=== PATIENT | female | born 1965 | race Hispanic/Latino ===

== ENCOUNTER 2018-11-17 10:34 | Emergency (ER) | payer BC, SELFPAY ==
--- NOTE | 2018-11-17 11:38 | RAD REPORT ---
EXAM DESCRIPTION: RAD - Chest Single View - 11/17/2018 11:25 am CLINICAL HISTORY: COUGH Chest pain. COMPARISON: No comparisons FINDINGS: Portable technique limits examination quality. Mild linear opacities are present in the right lung base suspicious for early/ developing pneumonia. The lungs are otherwise clear. The heart is normal in size. No displaced fractures. IMPRESSION: Early right base pneumonia.
[2018-11-17] MEDS ORDERED: NA CHLORIDE 0.9% 1,000 ML ONE (12:07)
[2018-11-17 12:16] LABS: Absolute Lymphocytes (CBC) 2.6 K/uL (0.7-4.9); Basophils % 0.4 % (0-1.3); Lymphocytes % 40.7 % (15.3-44.8); Monocytes % 5.9 % (3.3-12.3); RBC Red Blood Cell Count 4.82 M/uL (3.86-4.86)
[2018-11-17 12:17] LABS: Protime INR 1.03
[2018-11-17 12:28] LABS: Urine Blood TRACE (NEG); Urine Glucose NEGATIVE (NEG); Urine Protein 1+ (NEG); Urine Specific Gravity 1.025 (1.005-1.030)
[2018-11-17 12:39] LABS: ALT/SGPT 74 U/L (12-78); AST/SGOT 41 U/L (15-37); Albumin 3.8 g/dL (3.4-5.0); Alkaline Phosphatase 216 U/L (45-117); BUN Blood Urea Nitrogen 14 mg/dL (7-18); Bicarbonate 26 mmol/L (21-32); Bilirubin Direct 0.2 mg/dL (0-0.2); Bilirubin Total 0.4 mg/dL (0.2-1.0); Glucose Level 108 mg/dL (74-106); Magnesium 2.4 mg/dL (1.8-2.4); NT PRO-BNP 28 pg/mL (<125); Potassium 4.2 mmol/L (3.5-5.1); Protein, Total 7.7 g/dL (6.4-8.2); Sodium Level 140 mmol/L (136-145); Troponin (Emerg Dept Use Only) < 0.02 ng/mL (0.0-0.045)
--- NOTE | 2018-11-17 13:22 | RAD REPORT ---
EXAM DESCRIPTION: CT - Chest For Pe Angio - 11/17/2018 1:14 pm CLINICAL HISTORY: Chest pain, persistent cough COMPARISON: Chest films same date TECHNIQUE: Dynamically enhanced 3 mm thick images of the chest were obtained during administration o f approximately 150mL Isovue 370 IV contrast. Coronal and oblique MIP reconstruction images were gene rated and reviewed. Exam utilizes a protocol to evaluate the pulmonary arterial tree. All CT scans are performed using dose optimization technique as appropriate and may include automated exposure control or mA/KV adjustment according to patient size. FINDINGS: No pulmonary emboli are identified. The aorta as imaged shows no acute or suspicious finding. No pericardial thickening or effusion. No acute left lung field finding. Granulomas present. Patchy interstitial and alveolar opacities are present in the inferior aspect of the right upper lobe near the minor fissure and in the central aspe ct of the right middle lobe near the hilum. Reactive lymph nodes are present at the hilum. A more pro minent alveolar opacification pattern is present in the right lower lobe. This matches the chest film finding. No pleural effusion or pleural thickening. No mediastinal or hilar suspicious masses. No chest wall masses or abnormal axillary lymphadenopathy. IMPRESSION: No pulmonary emboli identified. Right lower lobe pneumonia changes are present with additional minimal pneumonia changes in the right upper lobe near the minor fissure and in the central aspect of the right middle lobe.
--- NOTE | 2018-11-17 13:50 | ER ---
Nurse's Notes [facility] Name: Teetee Hicks Age: 53 yrs Sex: Female : 1965 Arrival Date: 11/17/2018 Time: 10:35 Bed 27 Private MD: Diagnosis: Pneumonia due to other specified bacteria;Vomiting Presentation: 11/17 10:45 Presenting complaint: Patient states: tang been coughing a lot since Friday and been hj taking OTC cough meds; reports fever and chills; reports wheezing and vomited blood last night;. Transition of care: patient was not received from another setting of care. Onset of symptoms was November 17, 2018. Risk Assessment: Do you want to hurt yourself or someone else? Patient reports no desire to harm self or others. Initial Sepsis Screen: Does the patient meet any 2 criteria? No. Patient's initial sepsis screen is negative. Does the patient have a suspected source of infection? No. Patient's initial sepsis screen is negative. Care prior to arrival: None. 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 - Social history:: Smoking status: Patient/guardian denies using tobacco. - Ebola Screening: : Patient negative for fever greater than or equal to 101.5 degrees Fahrenheit, and additional compatible Ebola Virus Disease symptoms Patient denies exposure to infectious person Patient denies travel to an Ebola-affected area in the 21 days before illness onset No symptoms or risks identified at this time. Screenin:13 Abuse screen: Denies threats or abuse. Denies injuries from another. Nutritional iw screening: No deficits noted. Tuberculosis screening: No symptoms or risk factors identified. Fall Risk IV access (20 points). Assessment: 12:13 General: Appears in no apparent distress. Behavior is calm, cooperative. Pain: iw Complains of pain in chest. Neuro: Level of Consciousness is awake, alert, obeys commands, Oriented to person, place, time, situation, Moves all extremities. Cardiovascular: Patient's skin is warm and dry. Respiratory: Reports shortness of breath on exertion cough that is non-productive, dry, hacking, persistent Respiratory effort is even, unlabored, Respiratory pattern is regular, symmetrical. GI: Abdomen is non-distended. Derm: Skin is intact, is healthy with good turgor. 13:15 Reassessment: Patient appears in no apparent distress at this time. Patient and/or iw family updated on plan of care and expected duration. Pain level reassessed. Patient is alert, oriented x 3, equal unlabored respirations, skin warm/dry/pink. Vital Signs: 10:47 BP 140 / 65; Pulse 60; Resp 18; Temp 97.4(TE); Pulse Ox 98% on R/A; Weight 84.37 kg; hj Height 5 ft. 0 in. (152.40 cm); Pain 10/10; 12:14 BP 116 / 74; Pulse 57; Resp 16; Pulse Ox 96% on R/A; Pain 5/10; iw 10:47 Body Mass Index 36.33 (84.37 kg, 152.40 cm) ED Course: 10:35 Patient arrived in ED. as 10:46 Triage completed. hj 10:47 Arm band placed on left wrist. hj 11:10 Sandoval Beltran MD is Attending Physician. [facility] 11:24 X-ray completed. Portable x-ray completed in exam room. Patient tolerated procedure ml well. 11:27 XRAY Chest (1 view) In Process Unspecified. EDMS 11:30 Placed in gown. Bed in low position. Call light in reach. Side rails up X 1. Verbal jp3 reassurance given. 11:30 Pulse ox on. NIBP on. jp3 11:40 Urine collected: clean catch specimen, clear, eduar colored. Patient maintains SpO2 jp3 saturation greater than 95% on room air. 11:47 Brenda Rick, RN is Primary Nurse. iw 11:55 Initial lab(s) drawn, by me, sent to lab. Inserted saline lock: 22 gauge in left jp3 antecubital area, using aseptic technique. Blood collected. 12:01 Urine Culture Sent. jp3 12:01 Lipase Sent. jp3 12:01 Basic Metabolic Panel Sent. jp3 12:01 CBC with Diff Sent. jp3 12:01 LFT's Sent. jp3 12:01 Magnesium Sent. jp3 12:01 NT PRO-BNP Sent. jp3 12:02 PT-INR Sent. jp3 12:02 Troponin (emerg Dept Use Only) Sent. jp3 12:28 EKG done, by diesel automotive technician. reviewed by Sandoval Beltran MD. tc 13:15 CT Chest For PE Angio In Process Unspecified. EDMI 13:49 Bonilla Rodrigues MD is Referral Physician. noé 15:00 No provider procedures requiring assistance completed. IV discontinued, intact, iw bleeding controlled, No redness/swelling at site. Pressure dressing applied. Administered Medications: 12:11 Drug: NS 0.9% 500 ml Route: IV; Rate: bolus; Site: left antecubital; iw 13:40 Drug: Rocephin - (cefTRIAXone) 1 grams Route: IVPB; Infused Over: 30 mins; Site: left iw antecubital; 13:51 Drug: Augmentin 875 mg Route: PO; iw 13:52 Not Given (Physician Discretion): NS 0.9% 1000 ml IV at 125 ml/hr continuous iw 13:52 Drug: levofloxacin 750 mg Volume: 150 ml; Route: IVPB; Infused Over: 90 mins; Site: iw left antecubital; 13:52 Drug: Albuterol - atroVENT (3:1) (2.5 mg - 0.5 mg) 3 ml Route: Nebulizer; iw Outcome: 13:49 Discharge ordered by . [facility] 15:00 Discharged to home ambulatory. iw 15:00 Condition: good 15:00 Discharge instructions given to patient, Instructed on discharge instructions, follow up and referral plans. medication usage, Demonstrated understanding of instructions, follow-up care, medications, Prescriptions given X 5 15:01 Patient left the ED. iw Signatures: Dispatcher [employer] EDMI Sandoval Beltran MD MD cha Martinez, Amelia as Williams, Irene, RN RN Yesenia Yeung Tiffany, sales and events coordinator EKG Benjamin Pollock RN RN Abdirashid Correa jp3 Corrections: (The following items were deleted from the chart) 10:48 10:47 Pulse 60bpm; Resp 18bpm; Pulse Ox 98% RA; Temp 97.4F Temporal; 84.37 kg; Height 5 hj ft. 0 in.; BMI: 36.3; Pain 10/10; hj
--- NOTE | 2018-11-17 13:51 | EDPHYS ---
Physician Documentation [facility] Name: Teetee Hicks Age: 53 yrs Sex: Female : 1965 Arrival Date: 11/17/2018 Time: 10:35 Bed 27 Private MD: ED Physician Sandoval Beltran HPI: 11/17 12:46 This 53 yrs old Female presents to ER via Ambulatory with complaints of noé Vomiting. 12:46 The patient presents to the emergency department with nausea, vomiting, that is noé intermittent. Onset: The symptoms/episode began/occurred last night. Possible causes: unknown. The symptoms are aggravated by movement, The symptoms are alleviated by remaining still. Associated signs and symptoms: The patient has no apparent associated signs or symptoms. The patient has not experienced similar symptoms in the past. 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 - Social history:: Smoking status: Patient/guardian denies using tobacco. - Ebola Screening: : Patient negative for fever greater than or equal to 101.5 degrees Fahrenheit, and additional compatible Ebola Virus Disease symptoms Patient denies exposure to infectious person Patient denies travel to an Ebola-affected area in the 21 days before illness onset No symptoms or risks identified at this time. ROS: 12:47 Constitutional: Negative for fever, chills, and weight loss, Eyes: Negative for injury, noé pain, redness, and discharge, ENT: Negative for injury, pain, and discharge, Neck: Negative for injury, pain, and swelling, Cardiovascular: Negative for chest pain, palpitations, and edema, Abdomen/GI: Negative for abdominal pain, nausea, vomiting, diarrhea, and constipation, Back: Negative for injury and pain, : Negative for injury, bleeding, discharge, and swelling, MS/Extremity: Negative for injury and deformity, Skin: Negative for injury, rash, and discoloration, Neuro: Negative for headache, weakness, numbness, tingling, and seizure, Psych: Negative for depression, anxiety, suicide ideation, homicidal ideation, and hallucinations, Allergy/Immunology: Negative for hives, rash, and allergies, Endocrine: Negative for neck swelling, polydipsia, polyuria, polyphagia, and marked weight changes, Hematologic/Lymphatic: Negative for swollen nodes, abnormal bleeding, and unusual bruising. 12:47 Respiratory: Positive for cough, shortness of breath, wheezing, expiratory. Exam: 12:47 Constitutional: This is a well developed, well nourished patient who is awake, alert, noé and in no acute distress. Head/Face: Normocephalic, atraumatic. Eyes: Pupils equal round and reactive to light, extra-ocular motions intact. Lids and lashes normal. Conjunctiva and sclera are non-icteric and not injected. Cornea within normal limits. Periorbital areas with no swelling, redness, or edema. ENT: Nares patent. No nasal discharge, no septal abnormalities noted. Tympanic membranes are normal and external auditory canals are clear. Oropharynx with no redness, swelling, or masses, exudates, or evidence of obstruction, uvula midline. Mucous membranes moist. Neck: Trachea midline, no thyromegaly or masses palpated, and no cervical lymphadenopathy. Supple, full range of motion without nuchal rigidity, or vertebral point tenderness. No Meningismus. Chest/axilla: Normal chest wall appearance and motion. Nontender with no deformity. No lesions are appreciated. Cardiovascular: Regular rate and rhythm with a normal S1 and S2. No gallops, murmurs, or rubs. Normal PMI, no JVD. No pulse deficits. Abdomen/GI: Soft, non-tender, with normal bowel sounds. No distension or tympany. No guarding or rebound. No evidence of tenderness throughout. Back: No spinal tenderness. No costovertebral tenderness. Full range of motion. Female : Normal external genitalia. Skin: Warm, dry with normal turgor. Normal color with no rashes, no lesions, and no evidence of cellulitis. MS/ Extremity: Pulses equal, no cyanosis. Neurovascular intact. Full, normal range of motion. Neuro: Awake and alert, GCS 15, oriented to person, place, time, and situation. Cranial nerves II-XII grossly intact. Motor strength 5/5 in all extremities. Sensory grossly intact. Cerebellar exam normal. Normal gait. Psych: Awake, alert, with orientation to person, place and time. Behavior, mood, and affect are within normal limits. 12:47 Respiratory: the patient does not display signs of respiratory distress, Respirations: normal, Breath sounds: decreased breath sounds, rhonchi, wheezing: inspiratory expiratory is heard in the right middle lobe, right lower lobe, right posterior middle lobe and right posterior lower lobe. 12:50 : Rectal exam: is normal, Rectal tone: normal, Perineal sensation Normal Stool: noé normal, brown, Guaiac testing: results were negative for occult blood, hemorrhoid(s), are not appreciated, mass, is not appreciated, fissure, is not appreciated. Vital Signs: 10:47 BP 140 / 65; Pulse 60; Resp 18; Temp 97.4(TE); Pulse Ox 98% on R/A; Weight 84.37 kg; hj Height 5 ft. 0 in. (152.40 cm); Pain 10/10; 12:14 BP 116 / 74; Pulse 57; Resp 16; Pulse Ox 96% on R/A; Pain 5/10; iw 10:47 Body Mass Index 36.33 (84.37 kg, 152.40 cm) hj MDM: 11:10 Patient medically screened. [facility] 12:48 Data reviewed: vital signs, nurses notes, lab test result(s), EKG, radiologic studies, [facility] CT scan, plain films. 11/17 11:12 Order name: Basic Metabolic Panel; Complete Time: 12:44 [facility] 11/17 11:12 Order name: CBC with Diff; Complete Time: 12:44 [facility] 11/17 11:12 Order name: LFT's; Complete Time: 12:44 [facility] 11/17 11:12 Order name: Magnesium; Complete Time: 12:44 [facility] 11/17 11:12 Order name: NT PRO-BNP; Complete Time: 12:44 [facility] 11/17 11:12 Order name: PT-INR; Complete Time: 12:44 [facility] 11/17 11:12 Order name: Troponin (emerg Dept Use Only); Complete Time: 12:44 [facility] 11/17 11:12 Order name: XRAY Chest (1 view); Complete Time: 12:44 [facility] 11/17 11:12 Order name: Lipase; Complete Time: 12:44 [facility] 11/17 11:12 Order name: Urine Culture [facility] 11/17 12:08 Order name: Urine Dipstick--Ancillary (enter results); Complete Time: 12:44 11/17 12:08 Order name: Urine --Ancillary (enter results); Complete Time: 12:44 11/17 12:49 Order name: Blood Culture Adult (2) [facility] 11/17 12:49 Order name: Procalcitonin [facility] 11/17 11:12 Order name: EKG; Complete Time: 11:15 [facility] 11/17 11:12 Order name: Cardiac monitoring; Complete Time: 12:02 [facility] 11/17 11:12 Order name: EKG - Nurse/Tech; Complete Time: 14:11 [facility] 11/17 11:12 Order name: IV Saline Lock; Complete Time: 12:02 [facility] 11/17 11:12 Order name: Labs collected and sent; Complete Time: 12:02 [facility] 11/17 11:12 Order name: O2 Per Protocol; Complete Time: 12:02 [facility] 11/17 11:12 Order name: O2 Sat Monitoring; Complete Time: 12:02 [facility] 11/17 11:12 Order name: Urine Dipstick-Ancillary (obtain specimen); Complete Time: 12:01 [facility] 11/17 12:46 Order name: CT Chest For PE Angio; Complete Time: 13:49 [facility] Administered Medications: 12:11 Drug: NS 0.9% 500 ml Route: IV; Rate: bolus; Site: left antecubital; iw 13:40 Drug: Rocephin - (cefTRIAXone) 1 grams Route: IVPB; Infused Over: 30 mins; Site: left iw antecubital; 13:51 Drug: Augmentin 875 mg Route: PO; iw 13:52 Not Given (Physician Discretion): NS 0.9% 1000 ml IV at 125 ml/hr continuous iw 13:52 Drug: levofloxacin 750 mg Volume: 150 ml; Route: IVPB; Infused Over: 90 mins; Site: iw left antecubital; 13:52 Drug: Albuterol - atroVENT (3:1) (2.5 mg - 0.5 mg) 3 ml Route: Nebulizer; iw Disposition: 11/17/18 13:49 Discharged to Home. Impression: Pneumonia due to other specified bacteria, Vomiting. - Condition is Stable. - Discharge Instructions: Nausea and Vomiting, Adult, Nausea and Vomiting, Adult, [id number], Community-Acquired Pneumonia, Adult, [id number]. - Prescriptions for Levaquin 750 mg Oral Tablet - take 1 tablet by ORAL route once daily for 10 days; 10 tablet. Pepcid 20 mg Oral Tablet - take 1 tablet by ORAL route every 12 hours for 10 days; 20 tablet. Zofran 4 mg Oral Tablet - take 1 tablet by ORAL route every 12 hours As needed; 20 tablet. Albuterol Sulfate 90 mcg/actuation - inhale 1-2 puff by INHALATION route every 4-6 hours; 1 Inhaler. Augmentin 875- 125 mg Oral Tablet - take 1 tablet by ORAL route every 12 hours for 10 days; 20 tablet. - Medication Reconciliation Form, Thank You Letter, Antibiotic Education, Prescription Opioid Use form. - Follow up: Private Physician; When: 2 - 3 days; Reason: Recheck today's complaints, Continuance of care, Re-evaluation by your physician. Follow up: Bonilla Rodrigues; When: 2 - 3 days; Reason: Recheck today's complaints, Re-evaluation by your physician. - Problem is new. - Symptoms have improved. Signatures: Dispatcher [employer] EDMS Sandoval Beltran MD MD cha Williams, Irene, RN RN iw Joaquin, Henry, RN RN Corrections: (The following items were deleted from the chart) 15:01 13:49 11/17/2018 13:49 Discharged to Home. Impression: Pneumonia due to other specified iw bacteria; Vomiting. Condition is Stable. Discharge Instructions: Nausea and Vomiting, Adult, Nausea and Vomiting, Adult, [id number], Community-Acquired Pneumonia, Adult, [id number]. Prescriptions for Levaquin 750 mg Oral Tablet - take 1 tablet by ORAL route once daily for 10 days; 10 tablet, Pepcid 20 mg Oral Tablet - take 1 tablet by ORAL route every 12 hours for 10 days; 20 tablet, Zofran 4 mg Oral Tablet - take 1 tablet by ORAL route every 12 hours As needed; 20 tablet, Albuterol Sulfate 90 mcg/actuation - inhale 1-2 puff by INHALATION route every 4-6 hours; 1 Inhaler. and Forms are Medication Reconciliation Form, Thank You Letter, Antibiotic Education, Prescription Opioid Use. Follow up: Private Physician; When: 2 - 3 days; Reason: Recheck today's complaints, Continuance of care, Re-evaluation by your physician. Follow up: Bonilla Rodrigues; When: 2 - 3 days; Reason: Recheck today's complaints, Re-evaluation by your physician. Problem is new. Symptoms have improved. noé
[2018-11-17] MEDS ORDERED: NA CHLORIDE 0.9% 0 ML ONE (13:55)
[2018-11-17] MEDS ORDERED: CEFTRIAXONE/SWI 1gm 1 GM/10 ML SYR ONE (13:55)
[2018-11-17] MEDS ORDERED: IPRATROPIUM BROM 0.5MG/2.5ML ONE (13:55)
[2018-11-17] MEDS ORDERED: Levofloxacin 750mg IV 750 MG/150 ML BAG IV ONE (13:55)
[2018-11-17] MEDS ORDERED: ALBUTEROL 2.5 MG/3 ML NEB SOL ONE (13:55)
--- NOTE | 2018-11-17 15:06 | EKG ---
Test Date: 2018-11-17 Test Time: 12:20:41 Sample Color Maker: MOJGAN/ MEASUREMENT RESULTS: Intervals: Rate: 51 IN: 144 QRSD: 74 QT: 434 QTc: 400 [place]: P: 17 IN: 144 QRS: 30 T: 29 INTERPRETIVE STATEMENTS: Sinus bradycardia Otherwise normal ECG No previous ECG available for comparison Electronically Signed On 11-17-18 15:05:24 CDT by Efrem Zarate
== END 2018-11-17 15:01 | disposition home or self-care (01) ==
LOC: ER 10:34
DX: J15.8 Pneumonia due to other specified bacteria (principal); R11.2 Nausea with vomiting, unspecified
CPT/HCPCS: 36415; 71045; 71275; 80048; 80076; 81003; 81025; 83690; 83735; 83880; 84145; 84484; 85025; 85610; 87040; 87086; 87088; 93005; 94640; 96374; 96375; 99285; J0696; J7030; Q9967

== ENCOUNTER 2019-05-12 13:12 | Emergency (ER) | payer SELFPAY ==
[2019-05-12] MEDS ORDERED: IBUPROFEN 400 MG TAB ONE (14:09)
[2019-05-12] MEDS ORDERED: IBUPROFEN 200 MG TAB PO ONE (14:09)
[2019-05-12] MEDS ORDERED: BENZONATATE 100 MG CAP PO ONE (14:37)
--- NOTE | 2019-05-12 15:39 | EDPHYS ---
Physician Documentation [facility] Name: Teetee Hicks Age: 53 yrs Sex: Female : 1965 Arrival Date: 05/12/2019 Time: 13:15 Bed 14 Private MD: ED Physician Ismael Mckeon HPI: 05/12 14:08 This 53 yrs old Female presents to ER via Ambulatory with complaints of Flu kdr Symptoms. 14:08 The patient or guardian reports cough, that is intermittent, described as mild, kdr difficulty breathing, flu symptoms, arthralgias, low-grade fever, myalgias, no appetite, hoarse voice. Onset: The symptoms/episode began/occurred gradually, yesterday. Severity of symptoms: At their worst the symptoms were mild, in the emergency department the symptoms are unchanged. Modifying factors: The symptoms are alleviated by nothing, the symptoms are aggravated by nothing. Associated signs and symptoms: Pertinent positives: fever, sore throat, vomiting. The patient has not experienced similar symptoms in the past. The patient has not recently seen a physician. 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 - Social history:: Smoking status: Patient/guardian denies using tobacco. - Ebola Screening: : No symptoms or risks identified at this time. ROS: 14:08 Constitutional: Negative for objective fever, chills, and weight loss - has had kdr subjective fever Eyes: Negative for injury, pain, redness, and discharge, Neck: Negative for injury, pain, and swelling, Cardiovascular: Negative for chest pain, palpitations, and edema, Respiratory: Negative for shortness of breath, cough, wheezing, and pleuritic chest pain, Abdomen/GI: Negative for abdominal pain, nausea, vomiting, diarrhea, and constipation, Back: Negative for injury and pain, except in left trapezius : Negative for injury, bleeding, discharge, and swelling, MS/Extremity: Negative for injury and deformity, Skin: Negative for injury, rash, and discoloration, Neuro: Negative for headache, weakness, numbness, tingling, and seizure activity. Psych: Negative for depression, anxiety, suicide ideation, homicidal ideation, and hallucinations, Allergy/Immunology: Negative for hives, rash, and allergies, Endocrine: Negative for neck swelling, polydipsia, polyuria, polyphagia, and marked weight changes, Hematologic/Lymphatic: Negative for swollen nodes, abnormal bleeding, and unusual bruising. Exam: 14:08 Constitutional: This is a well developed, well nourished patient who is awake, alert, kdr and in no acute distress. Head/Face: Normocephalic, atraumatic. Eyes: Pupils equal round and reactive to light, extra-ocular motions intact. Lids and lashes normal. Conjunctiva and sclera are non-icteric and not injected. Cornea within normal limits. Periorbital areas with no swelling, redness, or edema. Neck: Trachea midline, no thyromegaly or masses palpated, and no cervical lymphadenopathy. Supple, full range of motion without nuchal rigidity, or vertebral point tenderness. No Meningismus. Chest/axilla: Normal chest wall appearance and motion. Nontender with no deformity. No lesions are appreciated. Cardiovascular: Regular rate and rhythm with a normal S1 and S2. No gallops, murmurs, or rubs. Normal PMI, no JVD. No pulse deficits. Respiratory: Lungs have equal breath sounds bilaterally, clear to auscultation and percussion. No rales, rhonchi or wheezes noted. No increased work of breathing, no retractions or nasal flaring. Abdomen/GI: Soft, non-tender, with normal bowel sounds. No distension or tympany. No guarding or rebound. No evidence of tenderness throughout. Skin: Warm, dry with normal turgor. Normal color with no rashes, no lesions, and no evidence of cellulitis. MS/ Extremity: Pulses equal, no cyanosis. Neurovascular intact. Full, normal range of motion. Neuro: Awake and alert, GCS 15, oriented to person, place, time, and situation. Cranial nerves II-XII grossly intact. Motor strength 5/5 in all extremities. Sensory grossly intact. Cerebellar exam normal. Normal gait. Psych: Awake, alert, with orientation to person, place and time. Behavior, mood, and affect are within normal limits. 14:08 Back: pain, that is mild, of the right trapezius, ROM is painless, normal spinal alignment noted, CVA tenderness, is absent, vertebral tenderness, is not appreciated. Vital Signs: 13:23 BP 118 / 70; Pulse 80; Resp 21 S; Temp 98.1(O); Pulse Ox 92% on R/A; Weight 89.81 kg; jl7 Height 5 ft. (152.40 cm) (R); Pain 8/10; 14:31 BP 131 / 55; Pulse 79; Resp 17 S; Pulse Ox 98% on R/A; ca1 15:38 BP 126 / 69; Pulse 75; Resp 19 S; Pulse Ox 94% on R/A; ca1 16:38 BP 129 / 77; Pulse 81; Resp 16 S; Temp 98.3(O); Pulse Ox 95% ; ca1 13:23 Body Mass Index 38.67 (89.81 kg, 152.40 cm) jl7 MDM: 14:08 Data reviewed: vital signs, nurses notes, lab test result(s). Counseling: I had a kdr detailed discussion with the patient and/or guardian regarding: the historical points, exam findings, and any diagnostic results supporting the discharge/admit diagnosis, lab results, the need for outpatient follow up. 15:38 Patient medically screened. kdr 05/12 13:24 Order name: Flu; Complete Time: 15:35 kdr 05/12 14:04 Order name: Strep; Complete Time: 15:35 ca1 05/12 14:45 Order name: Throat Culture EDMS Administered Medications: 14:07 Drug: Motrin 600 mg Route: PO; ca1 15:49 Follow up: Response: No adverse reaction; Pain is decreased ca1 14:38 Drug: Tessalon Perle 200 mg Route: PO; ca1 15:49 Follow up: Response: No adverse reaction; Marked relief of symptoms ca1 15:54 Drug: predniSONE 40 mg Route: PO; ca1 16:31 Follow up: Response: No adverse reaction; Marked relief of symptoms ca1 16:41 Drug: traMADol 50 mg {Note: RASS - 0.} Route: PO; ca1 16:48 Follow up: Response: Medication administered at discharge. ca1 Disposition: 05/12/19 15:38 Discharged to Home. Impression: Acute upper respiratory infection, unspecified, Acute laryngitis. - Condition is Stable. - Discharge Instructions: Laryngitis, Upper Respiratory Infection, Adult, [id number], Cough, Adult, [id number]. - Prescriptions for Tessalon Perles 100 mg Oral Capsule - take 1 capsule by ORAL route every 8 hours As needed; 15 capsule. Medrol (Blade) 4 mg Oral Tablets, Dose Pack - take 1 tablet by ORAL route as directed - follow package instructions; 1 packet. Albuterol Sulfate 90 mcg/actuation - inhale 1-2 puff by INHALATION route every 4-6 hours; 1 Inhaler. Tramadol 50 mg Oral Tablet - take 1 tablet by ORAL route every 8 hours as needed; 12 tablet. - Medication Reconciliation Form, Thank You Letter, Antibiotic Education, Prescription Opioid Use form. - Follow up: Private Physician; When: 2 - 3 days; Reason: If symptoms return, Further diagnostic work-up, Recheck today's complaints, Continuance of care, Re-evaluation by your physician. - Problem is new. - Symptoms have improved. Signatures: Dispatcher [employer] EDMS Ismael Mckeon MD MD kdr Rosalinda Aguillon RN RN jl7 Naomy Li RN RN ca1 Corrections: (The following items were deleted from the chart) 16:51 15:38 05/12/2019 15:38 Discharged to Home. Impression: Acute upper respiratory ca1 infection, unspecified; Acute laryngitis. Condition is Stable. Forms are Medication Reconciliation Form, Thank You Letter, Antibiotic Education, Prescription Opioid Use. Follow up: Private Physician; When: 2 - 3 days; Reason: If symptoms return, Further diagnostic work-up, Recheck today's complaints, Continuance of care, Re-evaluation by your physician. Problem is new. Symptoms have improved. kdr
--- NOTE | 2019-05-12 15:39 | ER ---
Nurse's Notes [facility] Name: Teetee Hicks Age: 53 yrs Sex: Female : 1965 Arrival Date: 05/12/2019 Time: 13:15 Bed 14 Private MD: Diagnosis: Acute upper respiratory infection, unspecified;Acute laryngitis Presentation: 05/12 13:19 Presenting complaint: Patient states: Coughing x 1 week, no voice x 3 days, stabbing jl7 pain to right side of back, chest tightness and epigastric pain with nausea, denies diarrhea. Transition of care: patient was not received from another setting of care. Onset of symptoms was May 05, 2019. Risk Assessment: Do you want to hurt yourself or someone else? Patient reports no desire to harm self or others. Initial Sepsis Screen: Does the patient meet any 2 criteria? No. Patient's initial sepsis screen is negative. Does the patient have a suspected source of infection? No. Patient's initial sepsis screen is negative. Care prior to arrival: None. 13:19 Method Of Arrival: Ambulatory jl7 13:19 Acuity: ANN 3 jl7 Triage Assessment: 13:23 General: Appears in no apparent distress. uncomfortable, Behavior is calm, cooperative, jl7 appropriate for age. Pain: Complains of pain in right subscapular area Pain does not radiate. Pain currently is 8 out of 10 on a pain scale. 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 - Social history:: Smoking status: Patient/guardian denies using tobacco. - Ebola Screening: : No symptoms or risks identified at this time. Screenin:36 Abuse screen: Denies threats or abuse. Denies injuries from another. Nutritional ca1 screening: No deficits noted. Tuberculosis screening: No symptoms or risk factors identified. Fall Risk None identified. Assessment: 13:36 General: Appears in no apparent distress. comfortable, Behavior is calm, cooperative, ca1 appropriate for age, Reports feeling ill for 2-3 days. Pain: Complains of pain in right trapezius and right subscapular area Pain currently is 9 out of 10 on a pain scale. Pain began 1 day ago. Is intermittent, Aggravated by coughing. Neuro: Level of Consciousness is awake, alert, obeys commands, Oriented to person, place, time, situation, Appropriate for age. Cardiovascular: Heart tones S1 S2 present Capillary refill < 3 seconds Patient's skin is warm and dry. Respiratory: Reports cough that is Airway is patent Respiratory effort is even, unlabored, Respiratory pattern is regular, symmetrical, Breath sounds are clear bilaterally. Onset: The symptoms/episode began/occurred 5 days ago, the patient has mild shortness of breath. GI: Abdomen is round non-distended, Bowel sounds present X 4 quads. Abd is soft and non tender X 4 quads. : No signs and/or symptoms were reported regarding the genitourinary system. EENT: Throat is reddened has enlarged tonsils bilaterally Reports pain when swallowing. Derm: Skin is intact, is healthy with good turgor, Skin is pink, warm \T\ dry. Musculoskeletal: Circulation, motion, and sensation intact. Capillary refill < 3 seconds, Range of motion: intact in all extremities. 14:31 Reassessment: Patient appears in no apparent distress at this time. Patient is alert, ca1 oriented x 3, equal unlabored respirations, skin warm/dry/pink. 15:48 Reassessment: Patient appears in no apparent distress at this time. Patient is alert, ca1 oriented x 3, equal unlabored respirations, skin warm/dry/pink. 16:49 Reassessment: Patient appears in no apparent distress at this time. Patient is alert, ca1 oriented x 3, equal unlabored respirations, skin warm/dry/pink. Vital Signs: 13:23 BP 118 / 70; Pulse 80; Resp 21 S; Temp 98.1(O); Pulse Ox 92% on R/A; Weight 89.81 kg; jl7 Height 5 ft. (152.40 cm) (R); Pain 8/10; 14:31 BP 131 / 55; Pulse 79; Resp 17 S; Pulse Ox 98% on R/A; ca1 15:38 BP 126 / 69; Pulse 75; Resp 19 S; Pulse Ox 94% on R/A; ca1 16:38 BP 129 / 77; Pulse 81; Resp 16 S; Temp 98.3(O); Pulse Ox 95% ; ca1 13:23 Body Mass Index 38.67 (89.81 kg, 152.40 cm) 7 ED Course: 13:15 Patient arrived in ED. mr 13:22 Triage completed. jl7 13:23 Ismael Mcekon MD is Attending Physician. kdr 13:23 Arm band placed on right wrist. jl7 13:29 Naomy Li, RN is Primary Nurse. ca1 13:36 Patient has correct armband on for positive identification. Placed in gown. Bed in low ca1 position. Call light in reach. Side rails up X 1. Pulse ox on. NIBP on. Warm blanket given. Head of bed elevated. 14:02 Flu and/or RSV swab sent to lab. tt1 14:11 Strep Sent. ca1 16:51 No provider procedures requiring assistance completed. Patient did not have IV access ca1 during this emergency room visit. Administered Medications: 14:07 Drug: Motrin 600 mg Route: PO; ca1 15:49 Follow up: Response: No adverse reaction; Pain is decreased ca1 14:38 Drug: Tessalon Perle 200 mg Route: PO; ca1 15:49 Follow up: Response: No adverse reaction; Marked relief of symptoms ca1 15:54 Drug: predniSONE 40 mg Route: PO; ca1 16:31 Follow up: Response: No adverse reaction; Marked relief of symptoms ca1 16:41 Drug: traMADol 50 mg {Note: RASS - 0.} Route: PO; ca1 16:48 Follow up: Response: Medication administered at discharge. ca1 Outcome: 15:38 Discharge ordered by . kdr 16:51 Discharged to home ambulatory. ca1 16:51 Condition: stable 16:51 Discharge instructions given to patient, Instructed on discharge instructions, follow up and referral plans. no drinking with medication, no driving heavy equipment, medication usage, Demonstrated understanding of instructions, follow-up care, medications, Prescriptions given X 4. 16:51 Patient left the ED. ca1 Signatures: Ismael Mckeon MD MD kdr Rivera, Tequila Momin tt1 Rosalinda Aguillon RN RN jl7 Naomy Li RN RN ca1
[2019-05-12] MEDS ORDERED: predniSONE 20 MG TAB ONE (15:54)
[2019-05-12] MEDS ORDERED: TRAMADOL HCL 50 MG TAB ONE (16:41)
[2019-05-12 17:02] VITALS: BP 129/77; TEMP 98.3; O2SAT 95
== END 2019-05-12 16:51 | disposition home or self-care (01) ==
LOC: ER 13:12
DX: J04.0 Acute laryngitis (principal); R50.9 Fever, unspecified; E11.9 Type 2 diabetes mellitus without complications; Z79.82 Long term (current) use of aspirin
CPT/HCPCS: 87070; 87081; 87804; 99284; J7512

== ENCOUNTER 2021-07-10 09:45 | Inpatient (IN) | payer SELFPAY ==
--- NOTE | 2021-07-10 10:25 | RAD REPORT ---
EXAM DESCRIPTION: CT - Ct Stroke Brain Wo Cont - 07/10/2021 10:19 am CLINICAL HISTORY: Dizziness;Weakness;Numbness CVA symptomology COMPARISON: <Comparisons> TECHNIQUE: All CT scans are performed using dose optimization technique as appropriate and may inclu de automated exposure control or mA/KV adjustment according to patient size. FINDINGS: No intracranial hemorrhage, hydrocephalus or extra-axial fluid collection.No areas of brai n edema or evidence of midline shift. The paranasal sinuses and mastoids are clear. The calvarium is intact. IMPRESSION: No acute intracranial abnormality. The findings were discussed with Dr. Leary On 07/10/2021 at 10:20 a.m. by telephone.
[2021-07-10] MEDS ORDERED: NA CHLORIDE 0.9% 50 ML ONE (10:35)
[2021-07-10] MEDS ORDERED: ALTEPLASE 100 ML IV ONE (10:35)
--- NOTE | 2021-07-10 10:38 | RAD REPORT ---
EXAM DESCRIPTION: CT - Head angio - 07/10/2021 10:29 am CLINICAL HISTORY: dizziness, paresthesia, weakness on left side Headache, drowsiness, CVA symptomology COMPARISON: Ct Stroke Brain Wo Cont dated 07/10/2021 TECHNIQUE: CT angiography of the head was performed with MIPs. All CT scans are performed using dose optimization technique as appropriate and may include automated exposure control or mA/KV adjustment according to patient size. FINDINGS: No evidence of aneurysm is detected. No flow-limiting stenosis or vascular malformation id entified. Antegrade flow is seen in the vertebral arteries. The vertebral arteries are codominant. The visualized dural venous sinuses are patent. IMPRESSION: No significant flow abnormality is detected.
--- NOTE | 2021-07-10 10:50 | ER ---
Nurse's Notes [facility] Name: Teetee Hicks Age: 56 yrs Sex: Female : 1965 Arrival Date: 07/10/2021 Time: 09:51 Bed 28 Private MD: Diagnosis: Cerebral infarction, unspecified;Weakness;Paresthesia of skin;Dizziness and giddiness Presentation: 07/10 10:11 Chief complaint: Patient states: Dizziness, ESCALANTE, left facial numbness, left upper and LE eo2 numbness and weakness onset 0830. Pt reports dizziness is worse with movement, room spinning, + nausea, denies V/D, CP, SOB. Coronavirus screen: Vaccine status: Patient reports receiving the 2nd dose of the covid vaccine. Ebola Screen: Patient negative for fever greater than or equal to 101.5 degrees Fahrenheit, and additional compatible Ebola Virus Disease symptoms Patient denies exposure to infectious person. Patient denies travel to an Ebola-affected area in the 21 days before illness onset. Initial Sepsis Screen: Does the patient meet any 2 criteria? No. Patient's initial sepsis screen is negative. Does the patient have a suspected source of infection? No. Patient's initial sepsis screen is negative. Risk Assessment: Do you want to hurt yourself or someone else? Patient reports no desire to harm self or others. Onset of symptoms was July 10, 2021 at 08:30. 10:11 Method Of Arrival: Ambulatory eo2 10:11 Acuity: ANN 2 eo2 Triage Assessment: 10:16 General: Appears in no apparent distress. comfortable, Behavior is calm, cooperative. eo2 Pain: Complains of pain in posterior headache. 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 - Social history:: Smoking status: Patient denies any tobacco usage or history of. - Family history:: not pertinent. - Hospitalizations: : No recent hospitalization is reported. Screenin:18 Abuse screen: Denies threats or abuse. Denies injuries from another. Nutritional eo2 screening: No deficits noted. Tuberculosis screening: No symptoms or risk factors identified. Fall Risk None identified. Assessment: 10:18 Neuro: Level of Consciousness is awake, alert, obeys commands, Oriented to person, eo2 place, time, situation, Moves all extremities. reports weakness to LUE and LLE. Reports dizziness, headache numbness. Cardiovascular: Denies chest pain, shortness of breath, Heart tones S1 S2 Capillary refill < 3 seconds Patient's skin is warm and dry. Respiratory: Reports shortness of breath at rest on exertion Airway is patent Trachea midline Respiratory effort is even, unlabored, Respiratory pattern is regular, symmetrical, Breath sounds are clear bilaterally. GI: Abdomen is round Bowel sounds present X 4 quads. Reports nausea, Patient currently denies diarrhea, vomiting. : No deficits noted. No signs and/or symptoms were reported regarding the genitourinary system. Musculoskeletal: Reports weakness in left arm and left leg numbness in left arm and left leg. 11:42 Reassessment: pt remains aaox4 in NAD, conversing and smiling with her sister at eo2 bedside in [facility]. Patient states symptoms have improved. ongoing left sided weakness but improving per pt. 12:12 Reassessment: tPA infusion completed at 1200, 50mL of 0.9% NS infusing now at eo2 72.6ml/hr, pt verbalized resolved numbness to LUE, and LLE, reports ongoing weakness to LUE, and improving numbness to left side of her face. 12:35 Reassessment: Pt reports improved symptoms, states sensation of b/l side of face is now eo2 equal, noted symmetrical smile, reports sensation to b/l UE and LE now symmetrical, minor drift noted to LUE. Pt also reports resolved dizziness and nausea. 12:45 Reassessment: Dr. Leary at bedside, pt now with all symptoms resolved, NIH=0. eo2 12:50 Reassessment: 50ml NS bolus now completed. Pt remains aaox4, conversing in NAD. eo2 14:30 Reassessment: Pt returned from MRI in NAD, remains aaox4, conversing, smiling in NAD. eo2 Pt updated on plan of care, verbalized understanding. Comfort measures met, will continue to monitor. 15:20 Reassessment: Pt to MRI at this time. eo2 Vital Signs: 10:11 BP 144 / 78; Pulse 56; Resp 15; Temp 97.3; Pulse Ox 99% ; Weight 89.6 kg; Height 5 ft. eo2 0 in. (152.40 cm); Pain 5/10; 10:58 BP 132 / 55; Pulse 53; Resp 14; Temp 98; Pulse Ox 100% ; eo2 10:59 BP 127 / 60; Pulse 54; Resp 14; Temp 97.9; Pulse Ox 100% ; Pain 0/10; eo2 11:00 BP 134 / 64; Pulse 57; Resp 18; Temp 97.7; Pulse Ox 100% ; Pain 0/10; eo2 11:30 BP 122 / 55; Pulse 53; Resp 14; Temp 97.4; Pulse Ox 97% ; Pain 0/10; eo2 12:00 BP 113 / 59 (art line/); Pulse 57; Resp 17; Temp 97.1; Pulse Ox 99% ; Pain 0/10; eo2 12:30 BP 133 / 70; Pulse 55; Resp 14; Temp 97.8; Pulse Ox 99% ; Pain 0/10; eo2 13:00 BP 123 / 63; Pulse 54; Resp 16; Temp 97.1; Pulse Ox 98% ; Pain 0/10; eo2 14:30 BP 122 / 63; Pulse 57; Resp 14; Temp 97.1; Pulse Ox 98% ; Pain 0/10; eo2 10:11 Body Mass Index 38.58 (89.60 kg, 152.40 cm) eo2 10:58 pre tPA eo2 10:59 tPA bolus admin eo2 11:00 tPA infusion start eo2 NIH Stroke Scale Scores: 10:14 NIHSS Score: 3 rn 10:18 NIHSS Score: 3 eo2 ED Course: 09:51 Patient arrived in ED. kz 10:00 Angela Fleming, MAN is Primary Nurse. eo2 10:01 Tu Leary MD is Attending Physician. rn 10:15 Inserted saline lock: 22 gauge in right antecubital area, using aseptic technique. eo2 Blood collected. 10:16 Triage completed. eo2 10:16 Arm band placed on. eo2 10:18 Patient has correct armband on for positive identification. groundwater monitoring technician on. Pulse eo2 ox on. NIBP on. Door closed. Noise minimized. Warm blanket given. 10:18 No provider procedures requiring assistance completed. eo2 10:19 CT Stroke Brain w/o Contrast In Process Unspecified. EDMS 10:28 CT Head Angio In Process Unspecified. EDMS 10:29 CT Neck Angio In Process Unspecified. EDMS 10:30 Inserted saline lock: 20 gauge in left antecubital area, using aseptic technique. Blood eo2 collected. 10:49 Ayaan Bennett is Hospitalizing Provider. rn 11:12 Stroke CXR 1 View In Process Unspecified. EDMS 19:02 Report given to Mita CONWAY. eo2 07/11 13:00 Patient admitted, IV remains in place. eo2 Administered Medications: 07/10 11:00 Drug: ACTIvase (alteplase) {Co-Signature: ap3 (Debbi Wilder RN).} {Note: 8mg bolus eo2 dose at 1059.} Route: IV Thrombolytics; Rate: calculated rate; Infused Over: 60 mins; 12:00 Follow up: Response: No adverse reaction eo2 12:00 Follow up: Response: No adverse reaction eo2 Output: 10:50 Urine: 600ml (Voided); Total: 600ml. eo2 12:20 Urine: 600ml (Voided); Total: 1200ml. eo2 Outcome: 10:49 Decision to Hospitalize by Provider. rn 07/11 13:00 Admitted to ER Hold. Please see [facility] for further documentation. eo2 Condition: stable Instructed on the need for admit. 13:47 Patient left the ED. eo2 NIH Stroke Scale - NIH Stroke Score Date: 07/10/2021 Time: 10:14 Total Score = 3 1a. Level of Consciousness (LOC) - 0(Alert) 1b. Level of Consciousness (LOC) (Month \T\ Age) - 0(Both) 1c. LOC Commands (Open \T\ Closes Eyes/Sample Sewer) - 0(Both) 2. Best Gaze (Lateral Gaze Paresis) - 0(Normal) 3. Visual Field Loss - 0(No visual loss) 4. Facial Palsy - 1(Minor Paralysis) 5a. Left Arm: Motor (10-second hold) - 1(Drift) 5b. Right Arm: Motor (10-second hold) - 0(No drift) 6a. Left Leg: Motor (5-second hold - always test supine) - 0(No drift) 6b. Right Leg: Motor (5-second hold - always test supine) - 0(No drift) 7. Limb Ataxia (finger/nose \T\ heel/gamboa - test with eyes open) - 0(Absent) 8. Sensory Loss (pinprick arms/legs/face) - 1(Mild to moderate loss) 9. Best Language: Aphasia (description/naming/reading) - 0(No aphasia) 10. Dysarthria (speech clarity - read or repeat words) - 0(Normal) 11. Extinction and Inattention (visual/tactile/auditory/spatial/personal) - 0(No abnormality) Initials: man NIH Stroke Scale - NIH Stroke Score Date: 07/10/2021 Time: 10:18 Total Score = 3 1a. Level of Consciousness (LOC) - 0(Alert) 1b. Level of Consciousness (LOC) (Month \T\ Age) - 0(Both) 1c. LOC Commands (Open \T\ Closes Eyes/Sample Sewer) - 0(Both) 2. Best Gaze (Lateral Gaze Paresis) - 0(Normal) 3. Visual Field Loss - 0(No visual loss) 4. Facial Palsy - 1(Minor Paralysis) 5a. Left Arm: Motor (10-second hold) - 1(Drift) 5b. Right Arm: Motor (10-second hold) - 0(No drift) 6a. Left Leg: Motor (5-second hold - always test supine) - 0(No drift) 6b. Right Leg: Motor (5-second hold - always test supine) - 0(No drift) 7. Limb Ataxia (finger/nose \T\ heel/g[place] - test with eyes open) - 0(Absent) 8. Sensory Loss (pinprick arms/legs/face) - 1(Mild to moderate loss) 9. Best Language: Aphasia (description/naming/reading) - 0(No aphasia) 10. Dysarthria (speech clarity - read or repeat words) - 0(Normal) 11. Extinction and Inattention (visual/tactile/auditory/spatial/personal) - 0(No abnormality) Initials: eo2 Signatures: Dispatcher [employer] EDTu Shah MD MD rn Owoade, Eunice, RN RN eo2 Rhonda Balderrama RN ap3 Corrections: (The following items were deleted from the chart) 07/10 11:28 10:16 Home Meds: Januvia oral; eo2 eo2 14:39 10:11 BP 144 / 78; Pulse 56bpm; Resp 15bpm; Pulse Ox 99%; Temp 97.3F; 87.54 kg; eo2 Height 5 ft. 0 in.; BMI: 37.6; Pain 5/10; eo2 07/11 13:46 13:46 Patient admitted, IV remains in place. eo2 eo2
--- NOTE | 2021-07-10 10:50 | EDPHYS ---
Physician Documentation [facility] Name: Teetee Hicks Age: 56 yrs Sex: Female : 1965 Arrival Date: 07/10/2021 Time: 09:51 Bed 28 Private MD: ED Physician Tu Leary HPI: 07/10 10:18 This 56 yrs old Female presents to ER via Ambulatory with complaints of rn Dizziness. 10:18 The patient presents to the emergency department with weakness of the paresthesias of rn the dizziness. Onset: The symptoms/episode began/occurred at 08:30. Associated signs and symptoms: Pertinent positives: dizziness, paresthesias, weakness, Pertinent negatives: fever, headache, neck stiffness, seizure, syncope, blurred vision, double vision, visual field changes, loss of vision. Severity of symptoms: At their worst the symptoms were moderate in the emergency department the symptoms are unchanged. Current symptoms: left sided weakness and numbness. The patient has experienced a previous episode. The patient has not recently seen a physician. Pt reports at work, at 0830 noticed dizziness, trouble walking, left arm/leg numbness and left arm weakness. Has had TIA in past, no residual deficits. No head injury. No change in medication. Was cleaning apples when it began. No recent illness/vomiting/diarrhea/cough.. 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 - Social history:: Smoking status: Patient denies any tobacco usage or history of. - Family history:: not pertinent. - Hospitalizations: : No recent hospitalization is reported. ROS: 10:20 Constitutional: Negative for fever, chills, and weight loss, Eyes: Negative for injury, rn pain, redness, and discharge, Neck: Negative for injury, pain, and swelling, Cardiovascular: Negative for chest pain, palpitations, and edema, Respiratory: Negative for shortness of breath, cough, wheezing, and pleuritic chest pain, Abdomen/GI: Negative for abdominal pain, nausea, vomiting, diarrhea, and constipation, Back: Negative for injury and pain, MS/Extremity: Negative for injury and deformity, Skin: Negative for injury, rash, and discoloration, Neuro: + left sided weakness and numbness, + dizziness Exam: 10:20 Constitutional: This is a well developed, well nourished patient who is awake, alert, rn appears anxious Head/Face: Normocephalic, atraumatic. Eyes: Pupils equal round and reactive to light, extra-ocular motions intact. Lids and lashes normal. Conjunctiva and sclera are non-icteric and not injected. Cornea within normal limits. Periorbital areas with no swelling, redness, or edema. Neck: Trachea midline, no masses palpated, and no cervical lymphadenopathy. Supple, full range of motion without nuchal rigidity, or vertebral point tenderness. No Meningismus. Cardiovascular: Regular rate and rhythm. No pulse deficits. Respiratory: No increased work of breathing, no retractions or nasal flaring. Abdomen/GI: Soft, non-tender Skin: Warm, dry MS/ Extremity: Pulses equal, no cyanosis. Neuro: Awake and alert, GCS 15, oriented to person, place, time, and situation. + mild left lower facial droop with forehead sparing. + left arm weakness with drift, + decreased sensation to LUE/LLE. No drift of LLE. 5/5 strength and normal sensation to right side of body. 10:56 ECG was reviewed by the Attending Physician. rn Vital Signs: 10:11 BP 144 / 78; Pulse 56; Resp 15; Temp 97.3; Pulse Ox 99% ; Weight 89.6 kg; Height 5 ft. eo2 0 in. (152.40 cm); Pain 5/10; 10:58 BP 132 / 55; Pulse 53; Resp 14; Temp 98; Pulse Ox 100% ; eo2 10:59 BP 127 / 60; Pulse 54; Resp 14; Temp 97.9; Pulse Ox 100% ; Pain 0/10; eo2 11:00 BP 134 / 64; Pulse 57; Resp 18; Temp 97.7; Pulse Ox 100% ; Pain 0/10; eo2 11:30 BP 122 / 55; Pulse 53; Resp 14; Temp 97.4; Pulse Ox 97% ; Pain 0/10; eo2 12:00 BP 113 / 59 (art line/); Pulse 57; Resp 17; Temp 97.1; Pulse Ox 99% ; Pain 0/10; eo2 12:30 BP 133 / 70; Pulse 55; Resp 14; Temp 97.8; Pulse Ox 99% ; Pain 0/10; eo2 13:00 BP 123 / 63; Pulse 54; Resp 16; Temp 97.1; Pulse Ox 98% ; Pain 0/10; eo2 14:30 BP 122 / 63; Pulse 57; Resp 14; Temp 97.1; Pulse Ox 98% ; Pain 0/10; eo2 10:11 Body Mass Index 38.58 (89.60 kg, 152.40 cm) eo2 10:58 pre tPA eo2 10:59 tPA bolus admin eo2 11:00 tPA infusion start eo2 NIH Stroke Scale Scores: 10:14 NIHSS Score: 3 rn 10:18 NIHSS Score: 3 eo2 MDM: 10:01 Patient medically screened. rn 10:37 ED course: Pt consented in liberian, and confirmed with sister in room that she rn understands everything, consents to TPA given NIH 3, sudden onset, and no contraindications at this time.. 10:47 ED course: Consulted with Dr. Peterson, agrees with TPA, CTA no LVO, will admit here. . rn 10:49 Data reviewed: vital signs, nurses notes, lab test result(s), EKG, radiologic studies, rn CT scan, and as a result, I will admit patient. Counseling: I had a detailed discussion with the patient and/or guardian regarding: the historical points, exam findings, and any diagnostic results supporting the discharge/admit diagnosis, lab results, radiology results, the need for further work-up and treatment in the hospital. Admission orders: after a detailed discussion of the patient's condition and case, the admit orders are written by me. 14:27 ED course: Patient reports doing much better, states symptoms have resolved, neuro rn reeval NIH 0.. 18:32 ED course: Pt appears better, is smiling, ambulatory to bathroom, reports symptoms she rn had at presentation have resolved, is happy with care. . 07/10 10:14 Order name: Basic Metabolic Panel; Complete Time: 12:44 rn 07/10 10:14 Order name: CBC with Diff; Complete Time: 11:10 rn 07/10 10:14 Order name: Protime (+inr); Complete Time: 12:44 rn 07/10 10:14 Order name: Ptt, Activated; Complete Time: 12:44 rn 07/10 10:42 Order name: CREATININE WHOLE BLOOD; Complete Time: 10:45 EDMS 07/10 10:49 Order name: COVID-19 SARS RT PCR (Document "Date of Onset" if Symptomatic); Complete bd Time: 12:44 07/10 10:53 Order name: Urine Dipstick-Ancillary; Complete Time: 10:57 EDMS 07/10 10:56 Order name: Glucose, Ancillary Testing; Complete Time: 11:10 EDMS 07/10 16:10 Order name: Glucose, Ancillary Testing EDMS 07/10 20:25 Order name: Glucose, Ancillary Testing EDMS 07/11 03:25 Order name: Protime (+INR) EDMS 07/11 03:25 Order name: PTT, Activated Partial Thromb EDMS 07/11 03:34 Order name: CBC with Automated Diff EDMS 07/11 03:35 Order name: Comprehensive Metabolic Panel EDMS 07/10 10:14 Order name: CT Stroke Brain w/o Contrast; Complete Time: 10:33 rn 07/10 10:14 Order name: Stroke CXR 1 View; Complete Time: 12:44 rn 07/10 10:14 Order name: EKG; Complete Time: 10:14 rn 07/10 10:14 Order name: CT Head Angio; Complete Time: 10:45 rn 07/10 10:14 Order name: CT Neck Angio; Complete Time: 10:57 rn 07/10 12:19 Order name: MRA Head Wo Cont; Complete Time: 14:27 EDMS 07/10 12:20 Order name: MRA Neck W/Wo Cont; Complete Time: 14:27 EDMS 07/10 12:20 Order name: Brain W/Wo Cont; Complete Time: 14:27 EDMS 07/11 03:35 Order name: Phosphorus EDMS 07/11 03:35 Order name: Lipid Profile EDMS 07/11 03:35 Order name: Magnesium EDMS 03/09 03:35 Order name: Thyroid Stimulating Hormone [facility] 07/11 03:48 Order name: T4 Free [facility] 07/11 08:21 Order name: Glucose, Ancillary Testing EDTN 07/10 10:14 Order name: Accucheck; Complete Time: 11: rn 07/10 10:14 Order name: Cardiac monitoring; Complete Time: : rn 07/10 10:14 Order name: EKG - Nurse/Tech; Complete Time: 11: rn 07/10 10:14 Order name: IV Saline Lock; Complete Time: : rn 07/10 10:14 Order name: Labs collected and sent; Complete Time: : rn 07/10 10:14 Order name: NPO; Complete Time: : rn 07/10 10:14 Order name: O2 Per Protocol; Complete Time: : rn 07/10 10:14 Order name: O2 Sat Monitoring; Complete Time: : rn 07/10 10:51 Order name: Labs - recollect needed: recollect all tubes; Complete Time: 11:05 bd EC:56 Rate is 59 beats/min. Rhythm is regular. QRS [place] is Normal. AL interval is normal. QRS rn interval is normal. QT interval is normal. No Q waves. T waves are Normal. No ST changes noted. Clinical impression: Sinus bradycardia. Interpreted by me. Reviewed by me. Administered Medications: 11:00 Drug: ACTIvase (alteplase) {Co-Signature: ap3 (Debbi Wilder RN).} {Note: 8mg bolus eo2 dose at 1059.} Route: IV Thrombolytics; Rate: calculated rate; Infused Over: 60 mins; 12:00 Follow up: Response: No adverse reaction eo2 12:00 Follow up: Response: No adverse reaction eo2 Disposition Summary: 07/10/21 10:49 Hospitalization Ordered Hospitalization Status: Inpatient Admission rn Provider: Ayaan Bennett rn Condition: Stable rn Problem: new rn Symptoms: are unchanged rn Bed/Room Type: Standard rn Location: [facility] ER HOLD(07/10/21 19:26) cg Room Assignment: ERHOLD-(07/10/21 19:26) cg Diagnosis - Cerebral infarction, unspecified rn - Weakness rn - Paresthesia of skin 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 Total time: 35 minutes NIH Stroke Scale - NIH Stroke Score Date: 07/10/2021 Time: 10:14 Total Score = 3 1a. Level of Consciousness (LOC) - 0(Alert) 1b. Level of Consciousness (LOC) (Month \\T\\ Age) - 0(Both) 1c. LOC Commands (Open \\T\\ Closes Eyes/Welder Explosion) - 0(Both) 2. Best Gaze (Lateral Gaze Paresis) - 0(Normal) 3. Visual Field Loss - 0(No visual loss) 4. Facial Palsy - 1(Minor Paralysis) 5a. Left Arm: Motor (10-second hold) - 1(Drift) 5b. Right Arm: Motor (10-second hold) - 0(No drift) 6a. Left Leg: Motor (5-second hold - always test supine) - 0(No drift) 6b. Right Leg: Motor (5-second hold - always test supine) - 0(No drift) 7. Limb Ataxia (finger/nose \\T\\ heel/gamboa - test with eyes open) - 0(Absent) 8. Sensory Loss (pinprick arms/legs/face) - 1(Mild to moderate loss) 9. Best Language: Aphasia (description/naming/reading) - 0(No aphasia) 10. Dysarthria (speech clarity - read or repeat words) - 0(Normal) 11. Extinction and Inattention (visual/tactile/auditory/spatial/personal) - 0(No abnormality) Initials: rn NIH Stroke Scale - NIH Stroke Score Date: 07/10/2021 Time: 10:18 Total Score = 3 1a. Level of Consciousness (LOC) - 0(Alert) 1b. Level of Consciousness (LOC) (Month \\T\\ Age) - 0(Both) 1c. LOC Commands (Open \\T\\ Closes Eyes/Welder Explosion) - 0(Both) 2. Best Gaze (Lateral Gaze Paresis) - 0(Normal) 3. Visual Field Loss - 0(No visual loss) 4. Facial Palsy - 1(Minor Paralysis) 5a. Left Arm: Motor (10-second hold) - 1(Drift) 5b. Right Arm: Motor (10-second hold) - 0(No drift) 6a. Left Leg: Motor (5-second hold - always test supine) - 0(No drift) 6b. Right Leg: Motor (5-second hold - always test supine) - 0(No drift) 7. Limb Ataxia (finger/nose \\T\\ heel/gamboa - test with eyes open) - 0(Absent) 8. Sensory Loss (pinprick arms/legs/face) - 1(Mild to moderate loss) 9. Best Language: Aphasia (description/naming/reading) - 0(No aphasia) 10. Dysarthria (speech clarity - read or repeat words) - 0(Normal) 11. Extinction and Inattention (visual/tactile/auditory/spatial/personal) - 0(No abnormality) Initials: eo2 Signatures: Dispatcher [employer] EDPatricia Renee Roman, MD MD rn Garcia, Cindy, RN RN cg Owoade, Eunice, RN RN eo2 Debbi Wilder RN ap3 Corrections: (The following items were deleted from the chart) 10:56 10:56 Rate is 59 beats/min. Rhythm is regular. QRS [place] is Normal. AL interval rn is normal. QRS interval is normal. QT interval is normal. No Q waves. T waves are Normal. No ST changes noted. Clinical impression: Normal ECG. Interpreted by me. Reviewed by me. rn 11:28 10:16 Home Meds: Januvia oral; eo2 eo2 12:19 11:56 MR STROKE PROTOCOL+MRI.RAD.KARLOS ordered. EDTN EDTN 19:26 10:49 Intensive Care Unit kami martinez 19: 10:49 kami martinez
--- NOTE | 2021-07-10 10:52 | RAD REPORT ---
EXAM DESCRIPTION: CT - Neck Angio - 07/10/2021 10:29 am CLINICAL HISTORY: dizzy, left sided weakness/numbness Neck pain, dizziness COMPARISON: No comparisons TECHNIQUE: CT angiography of the neck vessels was performed with MIPs. All CT scans are performed using dose optimization technique as appropriate and may include automated exposure control or mA/KV adjustment according to patient size. FINDINGS: A left aortic arch is identified with bovine configuration of the great vessels. No significant flow abnormality is seen of the common carotid bilaterally. No significant stenosis is identified involving the cervical segments of both internal carotid arteri es. Normal flow is seen within both vertebral arteries. IMPRESSION: No significant flow abnormality of the neck vessels is identified.
[2021-07-10 10:53] LABS: Urine Blood Negative (Negative); Urine Glucose Negative (Negative); Urine Protein Negative (Negative); Urine Specific Gravity 1.015 (1.005-1.030)
[2021-07-10 11:04] LABS: Absolute Lymphocytes (CBC) 2.1 K/uL (0.7-4.9); Hematocrit 39.1 % (36.0-45.0); Lymphocytes % 22.7 % (15.3-44.8); MPV 8.7 fL (7.6-11.3); RBC Red Blood Cell Count 4.56 M/uL (3.86-4.86)
[2021-07-10 11:12] LABS: Protime INR 1.01
[2021-07-10 11:17] LABS: BUN Blood Urea Nitrogen 16 mg/dL (7-18); Bicarbonate 30 mmol/L (21-32); Glucose Level 139 mg/dL (74-106); Potassium 4.1 mmol/L (3.5-5.1); Sodium Level 136 mmol/L (136-145)
--- NOTE | 2021-07-10 11:24 | RAD REPORT ---
EXAM DESCRIPTION: RAD - Chest Single View - 07/10/2021 11:12 am CLINICAL HISTORY: weakness/numbness Chest pain. COMPARISON: Chest Single View dated 11/17/2018 FINDINGS: Portable technique limits examination quality. The lungs are grossly clear. The heart is normal in size. No displaced fractures. IMPRESSION: No acute intrathoracic process suspected.
--- NOTE | 2021-07-10 13:31 | P.HP ---
Certification for Inpatient Patient admitted to: Inpatient With expected LOS: >2 Midnights Practitioner: I am a practitioner with admitting privileges, knowledge of patient current condition, hospital course, and medical plan of care. Services: Services provided to patient in accordance with Admission requirements found in Title 42 Section 412.3 of the Code of Federal Regulations Patient History Date of Service: 07/10/21 Reason for admission: Left-sided weakness History of Present Illness: 56-year-old woman with a history of diabetes mellitus type 2, history of TIA in the past presented to the emergency department with a complaint of sudden onset left-sided weakness. Symptoms occurred while at the workplace and it started with left facial droop, followed by the left-sided weakness. Stroke protocol called in the ED. CT head done showed no acute CVA. Patient was given TPA in the ED. EKG demonstrated sinus rhythm, blood pressure stable other blood work unremarkable. Dr. Peterson made aware by the ED provider. Patient is admitted to the ICU for further management.. - Past Medical/Surgical History -: Diabetes mellitus type 2 -: TIA - Family History Mother -: Hypertension - Social History Smoking Status: Never smoker Alcohol use: No CD- Drugs: No Place of Residence: Home Review of Systems Other: Patient denied any headache, no visual disturbance, no problem with swallowing or speech. Except as documented, all other systems reviewed and negative. Physical Examination - Physical Exam General: Alert, In no apparent distress, Oriented x3 HEENT: Mucous membr. moist/pink Neck: JVD not distended Respiratory: Clear to auscultation bilaterally, Normal air movement Cardiovascular: No edema, Regular rate/rhythm, Normal S1 S2 Capillary refill: <2 Seconds Gastrointestinal: Normal bowel sounds, Soft and benign, Non-distended, No tenderness Musculoskeletal: No swelling, No tenderness Integumentary: No rashes, No erythema, No cyanosis Neurological: Normal speech (Mild left facial droop and left-sided weakness), Normal reflexes 2+, Normal affect Lymphatics: No axilla or inguinal lymphadenopathy - Studies Laboratory Data (last 24 hrs) 07/10/21 10:56: PT 11.6, INR 1.01, APTT 37.8 H 07/10/21 10:56: WBC 9.30, Hgb 12.8, Hct 39.1, Plt Count 221 07/10/21 10:56: Sodium 136, Potassium 4.1, BUN 16, Creatinine 0.55, Glucose 139 H Assessment and Plan - Problems (Diagnosis) (1) Acute CVA (cerebrovascular accident) Current Visit: Yes Status: Acute (2) Diabetes mellitus type 2 in obese Current Visit: Yes Status: Acute - Plan Admit patient to the ICU. Status post t-PA. Monitor PT/INR and PTT. Neurochecks per stroke protocol No aspirin for 24 hours. Permissive hypertension Speech therapy consult for swallow evaluation and speech PT and OT consult. Bedside swallow evaluation. ADA diet. MRI of the brain, echocardiogram. Neurology consulted. Insulin sliding scale for glucose management. - Advance Directives Does patient have a Living Will: No Does patient have a Durable POA for Healthcare: No
--- NOTE | 2021-07-10 14:16 | RAD REPORT ---
EXAM DESCRIPTION: MRI - Brain W/Wo Cont - 07/10/2021 2:04 pm CLINICAL HISTORY: Left-sided numbness COMPARISON: head CT July 10, 2021 TECHNIQUE: Axial, sagittal, and coronal magnetic images of the brain were obtained. 20 cc MultiHance administered intravenously FINDINGS: No significant abnormal signal within the brain The ventricles are normal in caliber. Diffusion-weighted/ ADC mapping sequences do not demonstrate evidence of an acute infarction. No abnormal enhancement within the brain is seen. An extra-axial fluid collection is not noted. Fluid within the sinuses/mastoids is not seen IMPRESSION: No acute intracranial abnormality displayed
--- NOTE | 2021-07-10 14:19 | RAD REPORT ---
EXAM DESCRIPTION: MRI - MRA Neck W/Wo Cont - 07/10/2021 2:05 pm CLINICAL HISTORY: Left-sided numbness TECHNIQUE: Magnetic resonance angiogram of the neck was performed. 20 cc MultiHance was administered intravenously. 3D MIPS reconstruction performed FINDINGS: The common carotid, internal carotid and external carotid arteries do not demonstrate a si gnificant stenosis. An aneurysm is not seen. A bovine aorta The vertebral arteries are codominant without visualization of an abnormality. IMPRESSION: Unremarkable MRA neck NASCET criteria used. Mild 0-49% stenosis Moderate 50-69% stenosis Severe 70-99% stenosis
--- NOTE | 2021-07-10 14:23 | RAD REPORT ---
EXAM DESCRIPTION: MRI - MRA Head Wo Cont - 07/10/2021 2:02 pm CLINICAL HISTORY: Left-sided numbness COMPARISON: None. TECHNIQUE: Magnetic resonance angiogram was performed. 3D MIPS reconstruction performed FINDINGS: Hypoplastic A1 segment right anterior cerebral artery The anterior cerebral, middle cerebral, posterior cerebral, distal internal carotid and basilar arter ies do not demonstrate a significant stenosis. An aneurysm is not displayed. IMPRESSION: No acute abnormality is displayed
[2021-07-10] MEDS ORDERED: ACETAMINOPHEN 500 MG TAB PO PRN (14:47)
[2021-07-10] MEDS ORDERED: NA CHLORIDE 0.9% 1,000 ML IV SCH ×2 (14:47)
[2021-07-10] MEDS ORDERED: NA CHLORIDE 0.9% 250 ML IV PRN (14:47)
[2021-07-10] MEDS ORDERED: ONDANSETRON 4 MG/2 ML VIAL IV PRN (14:47)
[2021-07-10] MEDS ORDERED: NA CHLORIDE 0.9% 1,000 ML ONE (15:17)
[2021-07-10] MEDS: NA CHLORIDE 0.9% 1,000 ML IV SCH (15:18)
[2021-07-10 15:34] VITALS: BMI 38.5
[2021-07-10 15:46] VITALS: O2SAT 97
[2021-07-10] MEDS: INSULIN -REGULAR HUMAN 50 UNIT/0.5 ML ML SQ SCH ×2 (15:57→20:22)
[2021-07-10] MEDS ORDERED: INSULIN -REGULAR HUMAN 50 UNIT/0.5 ML ML SQ SCH (16:30)
[2021-07-10] MEDS ORDERED: ATORVASTATIN 20 MG TAB ONE (20:01)
[2021-07-10] MEDS ORDERED: INSULIN -REGULAR HUMAN 50 UNIT/0.5 ML ML ONE (20:21)
[2021-07-10] MEDS ORDERED: ATORVASTATIN 40 MG TAB PO SCH (21:00)
[2021-07-11 03:17] LABS: Protime INR 1.01
[2021-07-11 03:33] LABS: ALT/SGPT 39 U/L (12-78); AST/SGOT 20 U/L (15-37); Absolute Lymphocytes (CBC) 2.4 K/uL (0.7-4.9); Albumin 3.4 g/dL (3.4-5.0); Alkaline Phosphatase 146 U/L (45-117); BUN Blood Urea Nitrogen 14 mg/dL (7-18); Bicarbonate 27 mmol/L (21-32); Bilirubin Total 0.4 mg/dL (0.2-1.0); Glucose Level 140 mg/dL (74-106); HDL Cholesterol 38 mg/dL (40-60); Hematocrit 38.2 % (36.0-45.0); LDL Cholesterol, Calculated 76 (<130); Lymphocytes % 28.5 % (15.3-44.8); MPV 8.9 fL (7.6-11.3); Phosphorus 3.4 mg/dL (2.5-4.9); Potassium 4.2 mmol/L (3.5-5.1); Protein, Total 6.6 g/dL (6.4-8.2); RBC Red Blood Cell Count 4.45 M/uL (3.86-4.86); Sodium Level 139 mmol/L (136-145)
[2021-07-11] MEDS: NA CHLORIDE 0.9% 1,000 ML IV SCH (07:30)
[2021-07-11] MEDS ORDERED: NA CHLORIDE 0.9% 1,000 ML ONE (07:40)
[2021-07-11] MEDS: INSULIN -REGULAR HUMAN 50 UNIT/0.5 ML ML SQ SCH ×2 (08:09→11:30)
[2021-07-11] MEDS ORDERED: ALOGLIPTIN BENZOATE 6.25 MG TABLET PO SCH (09:00)
--- NOTE | 2021-07-11 10:58 | P.DS ---
Admission Date: 07/10/21 Discharge Date: 07/11/21 Disposition: ROUTINE DISCHARGE Discharge Condition: FAIR Reason for Admission: Left-sided weakness - Problems (1) Acute CVA (cerebrovascular accident) Current Visit: Yes Status: Acute (2) Diabetes mellitus type 2 in obese Current Visit: Yes Status: Acute Brief History of Present Illness: 56-year-old woman with a history of diabetes mellitus type 2, history of TIA in the past presented to the emergency department with a complaint of sudden onset left-sided weakness. Symptoms occurred while at the workplace and it started with left facial droop, followed by the left-sided weakness. Stroke protocol called in the ED. CT head done showed no acute CVA. Patient was given TPA in the ED. EKG demonstrated sinus rhythm, blood pressure stable other blood work unremarkable. Dr. Peterson made aware by the ED provider. Patient is admitted to the ICU for further management.. Hospital Course: Patient admitted to the ICU post t-PA for monitoring. ICU monitoring was uneventful, patient's neurologist symptoms resolved. MRI of the brain did not show any acute CVA. MRA of head and neck unremarkable, no vessel occlusion or stenosis. Patient ambulated without assistance, seen by speech and no problem with speech or swallow. Patient neurologic symptoms have resolved. Case discussed with neurology who recommended discharge. Neurology recommended dual platelet therapy-aspirin and Plavix, folic acid and statins. Patient deemed clinically stable for discharge. Vital Signs/Physical Exam: Temp Pulse Resp BP Pulse Ox 98.7 F 62 17 126/70 99 07/11/21 10:00 07/11/21 10:00 07/11/21 10:00 07/11/21 10:00 07/11/21 10:00 General: Alert, In no apparent distress, Oriented x3 HEENT: Mucous membr. moist/pink Neck: JVD not distended Respiratory: Clear to auscultation bilaterally, Normal air movement Cardiovascular: No edema, Regular rate/rhythm, Normal S1 S2 Gastrointestinal: Normal bowel sounds, Soft and benign, Non-distended, No tenderness Musculoskeletal: No swelling, No erythema, No tenderness Integumentary: No rashes, No cyanosis Neurological: Normal speech, Normal strength at 5/5 x4 extr, Cranial nerves 3-12 intact Laboratory Data at Discharge: WBC 8.50 K/uL (4.3-10.9) 07/11/21 02:55 Hgb 12.7 g/dL (12.0-15.0) 07/11/21 02:55 Hct 38.2 % (36.0-45.0) 07/11/21 02:55 Plt Count 204 K/uL (152-406) 07/11/21 02:55 PT 11.6 SECONDS (9.5-12.5) 07/11/21 02:55 INR 1.01 07/11/21 02:55 APTT 37.6 SECONDS (24.3-36.9) H 07/11/21 02:55 Sodium 139 mmol/L (136-145) 07/11/21 02:55 Potassium 4.2 mmol/L (3.5-5.1) 07/11/21 02:55 BUN 14 mg/dL (7-18) 07/11/21 02:55 Creatinine 0.53 mg/dL (0.55-1.3) L 07/11/21 02:55 Glucose 140 mg/dL (74-106) H 07/11/21 02:55 Phosphorus 3.4 mg/dL (2.5-4.9) 07/11/21 02:55 Magnesium 2.0 mg/dL (1.8-2.4) 07/11/21 02:55 Total Bilirubin 0.4 mg/dL (0.2-1.0) 07/11/21 02:55 AST 20 U/L (15-37) 07/11/21 02:55 ALT 39 U/L (12-78) 07/11/21 02:55 Alkaline Phosphatase 146 U/L (45-117) H 07/11/21 02:55 Triglycerides 151 mg/dL (<150) H 07/11/21 02:55 Cholesterol 144 mg/dL (<200) 07/11/21 02:55 HDL Cholesterol 38 mg/dL (40-60) L 07/11/21 02:55 Cholesterol/HDL Ratio 3.79 07/11/21 02:55 Home Medications: Sitagliptin Phosphate [Januvia] 25 mg PO DAILY 07/10/21 Aspirin [Aspirin EC 81 MG] 81 mg PO DAILY #30 tablet.dr 07/11/21 Atorvastatin Calcium [Lipitor] 40 mg PO BEDTIME #30 tab 07/11/21 Clopidogrel Bisulfate [Plavix] 75 mg PO DAILY #30 tablet 07/11/21 Folic Acid 1 mg PO DAILY #30 tablet 07/11/21 New Medications: Aspirin [Aspirin EC 81 MG] 81 mg PO DAILY #30 tablet. Folic Acid 1 mg PO DAILY #30 tablet Atorvastatin Calcium [Lipitor] 40 mg PO BEDTIME #30 tab Clopidogrel Bisulfate [Plavix] 75 mg PO DAILY #30 tablet Diet: AHA Activity: Ad nilda Followup: [facility] [Primary Care Provider] - Homero Peterson MD [ASSOCIATE-ACTIVE - CAN ADMIT] - (1 month ) Time spent managing pt's care (in minutes): 37
--- NOTE | 2021-07-11 12:56 | EKG ---
Test Date: 2021-07-10 Test Time: 10:42:06 Instrument Repair Specialist: EO MEASUREMENT RESULTS: Intervals: Rate: 59 TX: 130 QRSD: 76 QT: 406 QTc: 401 [place]: P: 28 TX: 130 QRS: 57 T: 56 INTERPRETIVE STATEMENTS: Sinus bradycardia Low voltage QRS Borderline ECG Compared to ECG 11/17/2018 12:20:41 Low QRS voltage now present Electronically Signed On 07-11-21 12:52:19 RADON INSPECTOR by Efrem Zarate
[2021-07-11 13:06] VITALS: BP 118/47; TEMP 98.2
--- NOTE | 2021-07-11 13:50 | ECHO ---
HEIGHT: 5 ft 0 in WEIGHT: 197 lb 8.547 oz DATE OF STUDY: 07/11/[address]: dilcia michaud 2-DIMENSIONAL: YES M.MODE: YES DOPPLER: YES COLOR FLOW: YES TDS: NO PORTABLE: YES DEFINITY: NO BUBBLE STUDY: NO DIAGNOSIS: STROKE CARDIAC HISTORY: CATHERIZATION: NO SURGERY: NO PROSTHETIC VALVE: NO PACEMAKER: NO MEASUREMENTS (cm) DIASTOLIC (NORMALS) SYSTOLIC (NORMALS) IVSd 1.1 (0.6-1.2) LA Diam 2.8 (1.9-4.0) LVEF 55% LVIDd 4.2 (3.5-5.7) LVIDs 3.0 (2.0-3.5) %FS 28% LVPWd 1.1 (0.6-1.2) Ao Diam 2.6 (2.0-3.7) 2 DIMENSIONAL ASSESSMENT: RIGHT ATRIUM: NORMAL LEFT ATRIUM: NORMAL RIGHT VENTRICLE: NORMAL LEFT VENTRICLE: NORMAL TRICUSPID VALVE: NORMAL MITRAL VALVE: NORMAL PULMONIC VALVE: NORMAL AORTIC VALVE: NORMAL PERICARDIAL EFFUSION: NONE AORTIC ROOT: NORMAL LEFT VENTRICULAR WALL MOTION: NORMAL. DOPPLER/COLOR FLOW: NORMAL. COMMENTS: NORMAL 2D ECHO WITH DOPPLER. NO WALL MOTION ABNORMALITY. NO VEGETATION. NO THROMBUS. TECHNOLOGIST: BHUMI MAX
== END 2021-07-11 13:45 | disposition home or self-care (01) | DRG 62 ==
LOC: ER 09:45 → ERHOLD 13:11
PROVIDERS: ADMIT Internal Medicine; ATTEND Internal Medicine
DX: I63.9 Cerebral infarction, unspecified (principal); G81.94 Hemiplegia, unspecified affecting left nondominant side; R29.810 Facial weakness; R29.703 NIHSS score 3; E11.9 Type 2 diabetes mellitus without complications; Z20.822 Contact with and (suspected) exposure to COVID-19
CPT/HCPCS: 36415; 70450; 70496; 70498; 70544; 70549; 70553; 71045; 80048; 80053; 80061; 81003; 82565; 82947; 83735; 84100; 84439; 84443; 85025; 85610; 85730; 92977; 93005; 93306; 97116; 97161; 99285; A9577; J2997; J7030; Q9967; U0003

== ENCOUNTER 2022-09-11 13:12 | Emergency (ER) | payer OTHER, SELFPAY ==
[2022-09-11] MEDS ORDERED: KETOROLAC 30 MG/ML INJ ONE (14:05)
--- NOTE | 2022-09-11 14:19 | RAD REPORT ---
EXAM DESCRIPTION: RAD - Knee Right 3 View - 09/11/2022 1:54 pm CLINICAL HISTORY: right knee pain COMPARISON: No comparisons FINDINGS: Mild arthritic changes are present. No fracture or joint effusion.
--- NOTE | 2022-09-11 15:24 | EDPHYS ---
Physician Documentation [facility] Name: Teetee Queen Age: 57 yrs Sex: Female : 1965 Arrival Date: 09/11/2022 Time: 13:12 Bed 12 Private MD: ED Physician Cl Gale HPI: 09/11 13:25 This 57 yrs old Female presents to ER via Wheelchair with complaints of Knee jmm Pain. 13:25 The patient presents with an injury, pain. The complaints affect the right leg. Onset: jmm The symptoms/episode began/occurred gradually, 2 week(s) ago. This is a 57-year-old female with history of CVA, diabetes mellitus the presents emerged part with complaints of ongoing right anterior knee pain. Patient states that she does perform strenuous activity at work. Denies other known injury or pain. Pain is worsened with weightbearing. Historical: - Allergies: 13:32 No Known Allergies; ap3 - PMHx: 13:32 Cerebrovascular accident; Diabetes - NIDDM; ap3 - PSHx: 13:32 Cholecystectomy; hysterectomy; ap3 - Immunization history:: Client reports receiving the 2nd dose of the Covid vaccine. - Social history:: Smoking status: Patient denies any tobacco usage or history of. ROS: 15:55 Constitutional: Negative for fever, chills, and weight loss, Cardiovascular: Negative jmm for chest pain, palpitations, and edema, Respiratory: Negative for shortness of breath, cough, wheezing, and pleuritic chest pain. 15:55 MS/extremity: Positive for injury or acute deformity. 15:55 All other systems are negative. Exam: 13:25 Constitutional: This is a well developed, well nourished patient who is awake, alert, jmm and in no acute distress. Head/Face: atraumatic. Eyes: EOMI, no conjunctival erythema appreciated ENT: Moist Mucus Membranes Neck: Trachea midline, Supple Chest/axilla: Normal chest wall appearance and motion. Cardiovascular: Regular rate and rhythm. No edema appreciated Respiratory: Normal respirations, no respiratory distress appreciated Abdomen/GI: Non distended Back: Normal ROM Skin: General appearance color normal 13:25 Musculoskeletal/extremity: ROM: intact in all extremities, Right anterior knee tender to palpation, pain elicited on palpation of the patellar tendon insertion site of the tibia, compartments are soft, full dorsalis pedis pulse, neurovascular. 13:25 Skin: Appearance: Color: normal in color. 13:25 Neuro: Orientation: is normal, Mentation: is normal, Memory: is normal. 13:25 Psych: Behavior/mood is pleasant, cooperative. Vital Signs: 13:31 BP 124 / 68; Pulse 73; Resp 17; Temp 97.7; Pulse Ox 100% ; Weight 95.25 kg; Pain 10/10; ap3 14:02 BP 139 / 68; Pulse 66; Resp 16; Pulse Ox 100% on R/A; db 15:20 BP 132 / 68; Pulse 67; Resp 18; Pulse Ox 100% ; db 13:31 Pain Scale: Adult ap3 MDM: 13:25 Patient medically screened. [facility] 15:55 Differential diagnosis: Fracture, tendinitis, internal derangement. Data reviewed: [facility] vital signs, nurses notes, radiologic studies, plain films. Consideration of Admission/Observation. I considered the following discharge prescriptions or medication management in the emergency department Medications were administered in the Emergency Department. See MAR. Independent interpretation of the following test(s) in the Emergency Department X-Ray: My interpretation is No fracture appreciated. Counseling: I had a detailed discussion with the patient and/or guardian regarding: the historical points, exam findings, and any diagnostic results supporting the discharge/admit diagnosis, radiology results, the need for outpatient follow up, to return to the emergency department if symptoms worsen or persist or if there are any questions or concerns that arise at home. 09/11 13:26 Order name: Knee Right 3 View XRAY; Complete Time: 14:35 [facility] 09/11 14:38 Order name: Robert wrap-joint; Complete Time: 15:16 [facility] Administered Medications: 14:02 Drug: Ketorolac IM 30 mg Route: IM; Site: right deltoid; db 15:16 Follow up: Response: No adverse reaction db Disposition: 18:39 Co-signature as Attending Physician, Cl Gale MD I reviewed the patient's care rt provided by the Advanced Practice Provider and agree with the diagnosis and treatment plan. Disposition Summary: 09/11/22 15:23 Discharge Ordered Location: Home [facility] Condition: Stable [facility] Diagnosis - Pain in right knee [facility] Followup: [facility] - With: Elan Cazares MD - When: 2 - 3 days - Reason: Recheck today's complaints, Continuance of care, Re-evaluation by your physician Discharge Instructions: - Discharge Summary Sheet [facility] - Acute Knee Pain, Adult [facility] Forms: - Medication Reconciliation Form [facility] - Thank You Letter shahid - Antibiotic Education joselito - Prescription Opioid Use [facility] Prescriptions: - Diclofenac Sodium 75 mg Oral Tablet Sustained Release - take 1 tablet by ORAL route 2 times per day; 30 tablet; Refills: 0, Product [facility] Selection Permitted - orphenadrine citrate 100 mg Oral Tablet Sustained Release - take 1 tablet by ORAL route 2 times per day As needed; 20 tablet; Refills: 0, [facility] Product Selection Permitted Signatures: Dispatcher [employer] EDMassimo Little PA PA jmm Prokisch, Amanda, RN RN ap3 April Rowe RN RN db Cl Gale MD MD rt
--- NOTE | 2022-09-11 15:24 | ER ---
Nurse's Notes [facility] Name: Teetee Queen Age: 57 yrs Sex: Female : 1965 Arrival Date: 09/11/2022 Time: 13:12 Bed 12 Private MD: Diagnosis: Pain in right knee Presentation: 09/11 13:31 Chief complaint: Patient states: she is having right knee pain that started "a couple ap3 weeks ago" without any trauma. Coronavirus screen: At this time, the client does not indicate any symptoms associated with coronavirus-19. Ebola Screen: No symptoms or risks identified at this time. Initial Sepsis Screen: Does the patient meet any 2 criteria? No. Patient's initial sepsis screen is negative. Does the patient have a suspected source of infection? No. Patient's initial sepsis screen is negative. Risk Assessment: Do you want to hurt yourself or someone else? Patient reports no desire to harm self or others. Onset of symptoms was August 2022. 13:31 Method Of Arrival: Wheelchair ap3 13:31 Acuity: ANN 4 ap3 Triage Assessment: 13:32 General: Appears uncomfortable, Behavior is calm, cooperative, appropriate for age. ap3 Pain: Complains of pain in medial aspect of right knee and right knee Pain currently is 10 out of 10 on a pain scale. Neuro: Level of Consciousness is awake, alert, obeys commands, Oriented to person, place, time, situation. Cardiovascular: Patient's skin is warm and dry. Respiratory: Airway is patent Respiratory effort is even, unlabored, Respiratory pattern is regular, symmetrical. Historical: - Allergies: 13:32 No Known Allergies; ap3 - PMHx: 13:32 Cerebrovascular accident; Diabetes - NIDDM; ap3 - PSHx: 13:32 Cholecystectomy; hysterectomy; ap3 - Immunization history:: Client reports receiving the 2nd dose of the Covid vaccine. - Social history:: Smoking status: Patient denies any tobacco usage or history of. Screenin:33 Abuse screen: Denies threats or abuse. Nutritional screening: No deficits noted. ap3 Tuberculosis screening: No symptoms or risk factors identified. 15:36 [facility] ED Fall Risk Assessment (Adult) History of falling in the last 3 months, db including since admission No falls in past 3 months (0 pts) Confusion or Disorientation No (0 pts) Intoxicated or Sedated No (0 pts) Impaired Gait No (0 pts) Mobility Assist Device Used No (0 pt) Altered Elimination No (0 pt) Score/Fall Risk Level 0 - 2 = Low Risk Oriented to surroundings, Maintained a safe environment. Assessment: 14:04 Reassessment: Patient appears in no apparent distress at this time. Patient and/or db family updated on plan of care and expected duration. Pain level reassessed. Patient is alert, oriented x 3, equal unlabored respirations, skin warm/dry/pink. right knee pain. has been bothering pt while working states is on her feet. Denies recent injury. General: Appears in no apparent distress. comfortable, Behavior is calm, cooperative. Neuro: Level of Consciousness is awake, alert, obeys commands. Respiratory: Airway is patent Respiratory effort is even, unlabored, Respiratory pattern is regular, symmetrical. 15:19 Reassessment: Patient appears in no apparent distress at this time. Patient and/or db family updated on plan of care and expected duration. Pain level reassessed. Patient is alert, oriented x 3, equal unlabored respirations, skin warm/dry/pink. Reassessment: Patient appears in no apparent distress at this time. Patient and/or family updated on plan of care and expected duration. Pain level reassessed. Patient is alert, oriented x 3, equal unlabored respirations, skin warm/dry/pink. Musculoskeletal: Circulation, motion, and sensation intact. Capillary refill < 3 seconds, Range of motion: intact in all extremities. Vital Signs: 13:31 BP 124 / 68; Pulse 73; Resp 17; Temp 97.7; Pulse Ox 100% ; Weight 95.25 kg; Pain 10/10; ap3 14:02 BP 139 / 68; Pulse 66; Resp 16; Pulse Ox 100% on R/A; db 15:20 BP 132 / 68; Pulse 67; Resp 18; Pulse Ox 100% ; db 13:31 Pain Scale: Adult ap3 ED Course: 13:14 Patient arrived in ED. rg4 13:18 Massimo Sheehan PA is PHCP. shahid 13:18 Cl Gale MD is Attending Physician. jmm 13:26 Debbi Wilder, MAN is Primary Nurse. ap3 13:32 Triage completed. ap3 13:33 Arm band placed on left wrist. ap3 13:36 Patient has correct armband on for positive identification. Bed in low position. Call ap3 light in reach. Side rails up X 1. Door closed. Noise minimized. Warm blanket given. 13:55 Knee Right 3 View XRAY In Process Unspecified. EDMS 15:19 Robert wrap to right knee. db 15:20 No provider procedures requiring assistance completed. Patient did not have IV access db during this emergency room visit. 15:23 Elan Cazares MD is Referral Physician. shahid Administered Medications: 14:02 Drug: Ketorolac IM 30 mg Route: IM; Site: right deltoid; db 15:16 Follow up: Response: No adverse reaction db Medication: 15:20 VIS not applicable for this client. db Outcome: 15:23 Discharge ordered by . shahid 15:36 Discharged to home ambulatory. db 15:36 Condition: stable 15:36 Discharge instructions given to patient, Instructed on discharge instructions, follow up and referral plans. Prescriptions given X 2. 15:36 Patient left the ED. db Signatures: Dispatcher [employer] EDMS Massimo Sheehan PA PA Becky Fontanez rg4 Debbi Wilder, RN RN ap3 April Rowe, RN RN db
[2022-09-11 15:42] VITALS: TEMP 97.7; O2SAT 100
[2022-09-11 15:45] VITALS: BP 132/68
== END 2022-09-11 15:36 | disposition home or self-care (01) ==
LOC: ER 13:12
DX: M25.561 Pain in right knee (principal)

== ENCOUNTER 2024-04-04 14:14 | Emergency (ER) | payer OTHER ==
--- NOTE | 2024-04-04 15:33 | RAD REPORT ---
EXAMINATION: ONE VIEW CHEST XR CLINICAL INDICATION: PALPITATIONS TECHNIQUE: Frontal chest projection is submitted. Examination is limited by patient positioning and t echnique. COMPARISON: 09/23/2023 FINDINGS: The lungs are well inflated and clear. The heart is upper limit of normal in size. No displaced fract ures identified. IMPRESSION: No acute intrathoracic abnormalities.
[2024-04-04 15:48] LABS: SARS-CoV-2 Antigen CONTROL BLUE LINE VIS/BG OK; SARS-CoV-2 Antigen Rapid Res Negative (Negative)
[2024-04-04 16:04] LABS: Absolute Lymphocytes (CBC) 0.4 K/uL (0.7-4.9); Absolute Monocytes 0.4 K/uL (0.1-1.3); Absolute Neutrophil 4.8 K/uL (1.8-8.0); Basophils % 0.3 % (0-1.3); Eosinophils % 0.1 % (0-4.4); Hematocrit 38.9 % (36.0-45.0); Hemoglobin 12.6 g/dL (12.0-15.0); Lymphocytes % 7.1 % (15.3-44.8); MCHC 32.4 g/dL (32.0-36.0); MCV 86.5 fL (80-100); MPV 9.1 fL (7.6-11.3); Monocytes % 6.4 % (3.3-12.3); Neutrophils % 86.1 % (41.7-73.7); Platelets 153 thou/uL (152-406); Red Cell Distribution Width 14.7 % (12.1-15.2)
[2024-04-04 16:23] LABS: Anion Gap 8.8 mEq/L (5.0-15.0); Troponin High Sensitivity 5.5 pg/mL (<58.9)
[2024-04-04 16:26] LABS: Blood Morphology Comment NOT SEEN (NOT SEEN); Platelet Estimate ADEQ; White Blood Cell Scan OK (OK)
[2024-04-04 16:30] LABS: Potassium 3.8 mEq/L (3.5-5.1)
--- NOTE | 2024-04-04 16:49 | EDPHYS ---
Physician Documentation [facility] Name: Teetee Queen Age: 58 yrs Sex: Female : 1965 Arrival Date: 04/04/2024 Time: 14:14 Bed 13 Private MD: ED Physician Sandoval Beltran HPI: 04/04 14:32 This 58 yrs old Female presents to ER via Unassigned with complaints of Flu kb Symptoms, Palpitations. 14:32 Pt is a 58 year old female who presents for cough, congestion, runny nose, bodyaches, kb headache, fever and chills that started yesterday. Reports vomited x 1. Denies diarrhea. States she was laying on the cough today and felt her heart beating fast, then slow. . Historical: - Allergies: 14:36 No Known Allergies; ss - PMHx: 14:36 Cerebrovascular accident; Diabetes - NIDDM; ss - PSHx: 14:36 Cholecystectomy; hysterectomy; ss - Immunization history:: Client reports receiving the 2nd dose of the Covid vaccine. - Infectious Disease History:: Denies. - Social history:: Smoking status: Patient denies any tobacco usage or history of. ROS: 14:32 Constitutional: As per HPI kb Exam: 14:32 Constitutional: This is a well developed, well nourished patient who is awake, alert, kb and in no acute distress. Head/Face: Normocephalic, atraumatic. ENT: Moist Mucous membranes Cardiovascular: Regular rate Respiratory: Respirations even and unlabored. No increased work of breathing. Talking in full sentences Abdomen/GI: Soft, non-tender. No distention Skin: Warm, dry with normal turgor. Normal color. MS/ Extremity: Pulses equal, no cyanosis. Neurovascular intact. Full, normal range of motion. Neuro: Awake and alert, GCS 15, oriented to person, place, time, and situation. 15:42 ECG was reviewed by the Attending Physician. cp Vital Signs: 14:35 BP 107 / 66; Pulse 77; Resp 16; Temp 97.8(TE); Pulse Ox 99% on R/A; Weight 88 kg; ss Height 5 ft. 0 in. ; 15:00 BP 118 / 64; Pulse 76; Resp 17; Pulse Ox 100% ; ko1 16:41 BP 110 / 62; Pulse 70; Resp 15; Pulse Ox 99% ; ko1 17:14 BP 108 / 60; Pulse 74; Resp 18; Pulse Ox 100% ; ko1 14:35 Body Mass Index 37.89 (88.00 kg, 152.4 cm) ss MDM: 14:21 Medical Screening Exam initiated kb 14:39 Transition of care: After a detail discussion of the patient's case, care is kb transferred to Sandoval FARIAS 16:48 Data reviewed: vital signs, nurses notes, lab test result(s), EKG, radiologic studies, cp plain films, and as a result, I will discharge patient. 16:48 Differential diagnosis: viral Infection, bacterial infection, bronchitis, pneumonia cp acute FL. I considered the following discharge prescriptions or medication management in the emergency department Medications were administered in the Emergency Department. See MAR. Care significantly affected by the following chronic conditions: Diabetes. Counseling: I had a detailed discussion with the patient and/or guardian regarding the historical points, exam findings, and any diagnostic results supporting the discharge/admit diagnosis, lab results, radiology results, to return to the emergency department if symptoms worsen or persist or if there are any questions or concerns that arise at home. Response to treatment: the patient's symptoms have mildly improved after treatment, and as a result, I will discharge patient. 04/04 14:34 Order name: Basic Metabolic Panel; Complete Time: 16:46 kb 04/04 14:34 Order name: CBC with Diff; Complete Time: 16:46 kb 04/04 14:34 Order name: Troponin HS; Complete Time: 16:46 kb 04/04 14:34 Order name: Flu; Complete Time: 15:55 kb 04/04 15:55 Interpretation: Normal except: FLUA FLU A ----- POSITIVE for FLU A protein antigen. 04/04 14:34 Order name: SARS-COV-2 Antigen Rapid; Complete Time: 15:55 kb 04/04 16:02 Interpretation: Reviewed. 04/04 16:26 Order name: CBC Smear Scan; Complete Time: 16:46 EDMS 04/04 14:34 Order name: XRAY Chest (1 view); Complete Time: 15:55 kb 04/04 15:55 Interpretation: Report review. 04/04 14:34 Order name: Cardiac monitoring; Complete Time: 15:04 kb 04/04 14:34 Order name: EKG - Nurse/Tech; Complete Time: 15:40 kb 12 14:34 Order name: IV Saline Lock; Complete Time: 15:56 kb 12 14:34 Order name: Labs collected and sent; Complete Time: 15:56 kb 04/04 14:34 Order name: O2 Per Protocol; Complete Time: 15:08 kb 12 14:34 Order name: O2 Sat Monitoring; Complete Time: 15:08 kb EC:42 Rate is 67 beats/min. Rhythm is regular. IA interval is normal. QRS interval is normal. cp QT interval is normal. T waves are Inverted in lead aVR. Interpreted by me. Reviewed by me. Administered Medications: 16:55 Drug: Oseltamivir PO 75 mg PO once Route: PO; ko1 17:16 Follow up: Response: No adverse reaction; Medication administered at discharge. ko1 16:56 Drug: Ibuprofen PO 800 mg PO once Route: PO; ko1 17:16 Follow up: Response: Medication administered at discharge. ko1 Disposition Summary: 04/04/24 16:48 Discharge Ordered Notes: Location: Home cp Problem: new cp Symptoms: have improved cp Condition: Stable cp Diagnosis - Influenza due to identified novel influenza A virus with other respiratory cp manifestations Followup: cp - With: Private Physician - When: 2 - 3 days - Reason: Worsening of condition Discharge Instructions: - Discharge Summary Sheet cp - Influenza, Adult cp - Influenza Tests cp Forms: - Medication Reconciliation Form cp - Antibiotic Education cp - Prescription Opioid Use cp - Patient Portal Instructions cp - Leadership Thank You Letter cp - Work release form ko1 Prescriptions: - Bromfed DM 2-30-10 mg/5 mL Oral syrup - administer 10 milliliter ORAL route every 6-8 hours as needed for cold cp symptoms; 240 milliliter; Refills: 0, Product Selection Permitted - Ibuprofen 800 mg Oral Tablet - take 1 tablet ORAL route every 8 hours As needed take with food; 30 tablet; cp Refills: 0, Product Selection Permitted - Tamiflu 75 mg Oral Capsule - take 1 capsule ORAL route every 12 hours for 5 days; 10 capsule; Refills: 0, cp Product Selection Permitted Signatures: Dispatcher [employer] Alicia Samuel FNP-C FNP-Ckb Blanchard, Shelby, RN RN ss Sandoval Parsons PA PA Kelsie Fabian RN RN ko1 Corrections: (The following items were deleted from the chart) 14:34 14:34 BASIC METABOLIC PANEL+C.LAB.BRZ ordered. EDMS EDMS 14:34 14:34 CBC+H.LAB.BRZ ordered. EDMS EDMS 14:34 14:34 Troponin High Sensitivity+C.LAB.BRZ ordered. EDMS EDMS 14:34 14:34 Influenza Screen (A \T\ B)+BA.LAB.BRZ ordered. EDMS EDMS 14:34 14:34 SARS-COV-2 Antigen Rapid+I.LAB.BRZ ordered. EDMS EDMS 14:34 14:34 Chest Single View+RAD.RAD.BRZ ordered. EDMS EDMS 14:34 14:32 Pt is a 58 year old female who presents for cough, congestion, runny nose, kb bodyaches, headache, fever and chills that started yesterday. Reports vomited x 1. Denies diarrhea. . kb
--- NOTE | 2024-04-04 16:49 | ER ---
Nurse's Notes [facility] Name: Teetee Queen Age: 58 yrs Sex: Female : 1965 Arrival Date: 04/04/2024 Time: 14:14 Bed 13 Private MD: Diagnosis: Influenza due to identified novel influenza A virus with other respiratory manifestations Presentation: 04/04 14:35 Chief complaint: Patient states: cough, fever and congestion that began yesterday. ss Coronavirus screen: Client denies travel out of the [place] in the last 14 days. Ebola Screen: Patient denies exposure to infectious person. Patient denies travel to an Ebola-affected area in the 21 days before illness onset. Initial Sepsis Screen: Does the patient meet any 2 criteria? No. Patient's initial sepsis screen is negative. Does the patient have a suspected source of infection? No. Patient's initial sepsis screen is negative. Risk Assessment: Do you want to hurt yourself or someone else? Patient reports no desire to harm self or others. Onset of symptoms was April 03, 2024. 14:35 Method Of Arrival: Ambulatory ss 14:35 Acuity: ANN 3 ss Historical: - Allergies: 14:36 No Known Allergies; ss - PMHx: 14:36 Cerebrovascular accident; Diabetes - NIDDM; ss - PSHx: 14:36 Cholecystectomy; hysterectomy; ss - Immunization history:: Client reports receiving the 2nd dose of the Covid vaccine. - Infectious Disease History:: Denies. - Social history:: Smoking status: Patient denies any tobacco usage or history of. Screenin:41 [facility] ED Fall Risk Assessment (Adult) History of falling in the last 3 months, ko1 including since admission No falls in past 3 months (0 pts) Confusion or Disorientation No (0 pts) Intoxicated or Sedated No (0 pts) Impaired Gait No (0 pts) Mobility Assist Device Used No (0 pt) Altered Elimination No (0 pt) Score/Fall Risk Level 0 - 2 = Low Risk Oriented to surroundings, Maintained a safe environment, Educated pt \T\ family on fall prevention, incl call for assistance when getting out of bed, Assessed \T\ reinforced patient's understanding of fall precautions, Provided non-skid footwear, Hourly rounding (assess needs \T\ fall precautionary measures) done. Abuse screen: Denies threats or abuse. Denies injuries from another. Nutritional screening: No deficits noted. Tuberculosis screening: No symptoms or risk factors identified. Assessment: 15:00 General: Appears ill, Behavior is calm, cooperative, appropriate for age. Pain: Denies ko1 pain. Neuro: No deficits noted. Cardiovascular: Reports palpitations. Respiratory: Reports cough that is productive. GI: Reports vomiting. : No deficits noted. EENT: Reports nasal congestion nasal discharge. Derm: No deficits noted. Musculoskeletal: No deficits noted. Vital Signs: 14:35 BP 107 / 66; Pulse 77; Resp 16; Temp 97.8(TE); Pulse Ox 99% on R/A; Weight 88 kg; ss Height 5 ft. 0 in. ; 15:00 BP 118 / 64; Pulse 76; Resp 17; Pulse Ox 100% ; ko1 16:41 BP 110 / 62; Pulse 70; Resp 15; Pulse Ox 99% ; ko1 17:14 BP 108 / 60; Pulse 74; Resp 18; Pulse Ox 100% ; ko1 14:35 Body Mass Index 37.89 (88.00 kg, 152.4 cm) ED Course: 14:17 Patient arrived in ED. im 14:21 Alicia Milian FNP-C is PHCP. kb 14:21 Sandoval Beltran MD is Attending Physician. kb 14:36 Triage completed. ss 14:36 Arm band placed on right wrist. ss 14:37 PHCP role handed off by Alicia Milian FNP-C cp 14:37 Sandoval Parsons PA is PHCP. cp 14:40 Patient has correct armband on for positive identification. Placed in gown. Bed in low ko1 position. Call light in reach. Side rails up X 1. Provided Education on: labs. Client placed on continuous cardiac and pulse oximetry monitoring. NIBP monitoring applied. elevator constructor hydraulic on. Door closed. Noise minimized. Lights dimmed. 14:40 No provider procedures requiring assistance completed. ko1 14:51 Kelsie Morse, MAN is Primary Nurse. ko1 15:00 Inserted saline lock: 20 gauge in right forearm, using aseptic technique. Blood ko1 collected. Flushed with 10 mL NS. 15:11 XRAY Chest (1 view) In Process Unspecified. EDMS 17:15 IV discontinued, intact, bleeding controlled, No redness/swelling at site. Pressure ko1 dressing applied. Administered Medications: 16:55 Drug: Oseltamivir PO 75 mg PO once Route: PO; ko1 17:16 Follow up: Response: No adverse reaction; Medication administered at discharge. ko1 16:56 Drug: Ibuprofen PO 800 mg PO once Route: PO; ko1 17:16 Follow up: Response: Medication administered at discharge. ko1 Medication: 16:41 VIS not applicable for this client. ko1 Outcome: 16:48 Discharge ordered by MD. cp 17:15 Discharged to home ambulatory, ko1 17:15 Condition: stable 17:15 Discharge instructions given to patient, Instructed on discharge instructions, follow up and referral plans. medication usage, Demonstrated understanding of instructions, follow-up care, medications, Prescriptions given X 3, 17:16 Patient left the ED. ko1 Signatures: Dispatcher [employer] EDMS Alicia Milian, AURICULAR THERAPIST-C AURICULAR THERAPIST-Marielos Toure RN RN ss Sandoval Parsons PA PA Kelsie Fabian RN RN ko1 Althea Lebron
[2024-04-04] MEDS ORDERED: OSELTAMIVIR 75 MG CAP PO ONE (16:57)
[2024-04-04] MEDS ORDERED: IBUPROFEN 400 MG TAB ONE (16:57)
[2024-04-04 19:48] VITALS: TEMP 97.8
[2024-04-04 20:01] VITALS: BP 108/60; O2SAT 100
--- NOTE | 2024-04-05 10:17 | EKG ---
Test Date: 2024-04-04 Test Time: 15:38:15 Bleach Analyst: ESPERANZA MEASUREMENT RESULTS: Intervals: Rate: 67 [place]: 142 QRSD: 76 QT: 396 QTc: 418 [place]: P: -2 [place]: 142 QRS: 56 T: 18 INTERPRETIVE STATEMENTS: Normal sinus rhythm Low voltage QRS Cannot rule out Anterior infarct, age undetermined Abnormal ECG Compared to ECG 09/23/2023 07:10:50 Myocardial infarct finding now present Sinus bradycardia no longer present Electronically Signed On 04-05-24 10:17:16 COMMODITY DIRECTOR by Isael Ruiz
== END 2024-04-04 17:16 | disposition home or self-care (01) ==
LOC: ER 14:14
DX: J10.1 Influenza due to other identified influenza virus with other respiratory manifestations (principal); Z11.52 Encounter for screening for COVID-19; E11.9 Type 2 diabetes mellitus without complications; Z86.73 Personal history of transient ischemic attack (TIA), and cerebral infarction without residual deficits
CPT/HCPCS: 36415; 71045; 80048; 84484; 85025; 87804; 87811; 93005; 99284